=== PATIENT | female | born 1945 | race African-American/Black ===

== ENCOUNTER 2019-03-10 09:32 | Emergency (ER) | payer MEDICARE ==
--- NOTE | 2019-03-10 10:40 | CT ---
BRAIN CT WITHOUT IV CONTRAST: Date: 03/10/19 HISTORY: Seizure. FINDINGS: There is a fairly large area of encephalomalacia with some associated volume loss in the left occipit al lobe with some dilatation of the adjacent lateral ventricle. No focal mass or midline shift. No in tra or extra-axial hemorrhage. Sinuses and mastoids are clear of acute process. 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 No mass or bleed, o r other acute process. POS: C
[2019-03-10 10:47] LABS: #Eosinphils 0.1 thou/uL (0.0-0.7); #Monocytes 0.2 thou/uL (0.11-0.59); #Neutrophils 4.3 thou/uL (1.40-6.50); %Basophils 0.5 % (0.0-1.0); %Lymphocytes 18.3 % (21.0-51.0); %Monocytes 3.5 % (0.0-10.0); %Neutrophils 76.8 % (42.0-75.0); Hemoglobin 9.3 g/dL (12.0-16.0); Mean Corpuscular Hemoglobin 26.2 pg (27.0-31.0); Mean Corpuscular Volume 84.3 fL (78.0-98.0); Mean Platelet Volume 6.7 fL (7.4-10.4); Platelet Count 223 thou/uL (130-400); RBC Distribution Width 14.5 % (11.5-14.5); Red Blood Cell (RBC) Count 3.56 mill/uL (4.20-5.40); White Blood Cell (WBC) Count 5.6 thou/uL (4.8-10.8)
[2019-03-10 10:52] LABS: Bilirubin Negative (Negative); Blood, Urine Small (Negative); Clarity Clear (Clear); Glucose, Urine (Dipstick) Negative (Negative); Leukocyte Negative (Negative); Nitrite Negative (Negative); Protein, Urine (Dipstick) > or equal to 300 mg/dL (Neg-Trace); Urobilinogen 0.2 mg/dL (0.2-1.0); pH, Urine 5.5 (5.0-9.0)
[2019-03-10 11:01] LABS: ALT (SGPT) 13 U/L (8-55); AST (SGOT) 18 U/L (5-34); Albumin 3.8 g/dL (3.4-4.8); Alkaline Phosphatase 67 U/L (40-150); Anion Gap 15 mmol/L (10-20); BUN (Urea Nitrogen) 21 mg/dL (9.8-20.1); Bilirubin, Total 0.4 mg/dL (0.2-1.2); Calc. Creatinine Clearance 0 mL/min (70-130); Calcium 9.3 mg/dL (7.8-10.44); Carbon Dioxide 25 mmol/L (23-31); Chloride 105 mmol/L (98-107); Estimated GFR-MDRD 63; Globulin 3.5 g/dL (2.4-3.5); Glucose 172 mg/dL (83-110); Protein, Total 7.3 g/dL (6.0-8.3); Sodium 141 mmol/L (136-145)
[2019-03-10 11:01] LABS: Bacteria/HPF 3+ HPF (None Seen); RBC/HPF 0-3 HPF (0-3); Squamous Epithelial 0-3 HPF (0-3); WBC/HPF 0-3 HPF (0-3)
[2019-03-10 11:02] LABS: Amphetamine Not Detected (NotDetected); Barbiturates Screen Not Detected (NotDetected); Benzodiazepine Screen Not Detected (NotDetected); Cocaine Metabolite Screen Not Detected (NotDetected); Medtox Control Line Valid? VALID (VALID); Methadone Not Detected (NotDetected); Methamphetamine Not Detected (NotDetected); Opiate Screen Not Detected (NotDetected); Oxycodone Screen Not Detected (NotDetected); Phencyclidine (PCP) Not Detected (NotDetected); THC/Cannabinoid Screen Not Detected (NotDetected); Tricyclic Screen Not Detected (NotDetected)
--- NOTE | 2019-03-10 11:25 | RAD ---
XR Chest 1 View Portable HISTORY: Altered mental status COMPARISON: 07/06/2015 FINDINGS: The heart size is borderline. The aorta is tortuous. The lungs are well expanded without lo bar consolidation, pneumothoraces, thelma pulmonary edema or pleural effusions. IMPRESSION: No radiographic evidence of acute cardiopulmonary process.
[2019-03-10] MEDS ORDERED: cefTRIAXone\\ROCEPHIN 1 GM VIAL ONE (11:44)
[2019-03-10] MEDS ORDERED: levETIRAcetam 500 MG TAB ONE (12:02)
== END 2019-03-10 12:45 | disposition home or self-care (01) ==
LOC: MADERS 09:32
DX: R56.9 Unspecified convulsions (principal); R41.82 Altered mental status, unspecified; I11.0 Hypertensive heart disease with heart failure; I50.9 Heart failure, unspecified; D64.9 Anemia, unspecified; N39.0 Urinary tract infection, site not specified; E11.9 Type 2 diabetes mellitus without complications; E78.00 Pure hypercholesterolemia, unspecified; Z86.73 Personal history of transient ischemic attack (TIA), and cerebral infarction without residual deficits; F41.9 Anxiety disorder, unspecified; Z79.899 Other long term (current) drug therapy; Z79.82 Long term (current) use of aspirin; Z79.84 Long term (current) use of oral hypoglycemic drugs
CPT/HCPCS: 36415; 36416; 51701; 70450; 71045; 80053; 80306; 81003; 81015; 84484; 85025; 87040; 93005; 94760; 96374; A4353; J0696

== ENCOUNTER 2021-10-18 15:12 | Inpatient (IN) | payer MEDICARE ==
[2021-10-18] MEDS ORDERED: Ibuprofen 600 MG TAB ONE (15:52)
[2021-10-18 15:59] LABS: #Lymphocytes 0.6 thou/uL (1.20-3.40); #Monocytes 0.6 thou/uL (0.11-0.59); #Neutrophils 7.6 thou/uL (1.40-6.50); %Basophils 0.2 % (0.0-1.0); %Eosinophils 0.1 % (0.0-10.0); %Lymphocytes 6.4 % (21.0-51.0); %Monocytes 6.3 % (0.0-10.0); Hemoglobin 8.5 g/dL (12.0-16.0); Mean Corpuscular HGB CONC 31.4 g/dL (32.0-36.0); Mean Corpuscular Hemoglobin 27.3 pg (27.0-31.0); Mean Corpuscular Volume 87.1 fL (78.0-98.0); Mean Platelet Volume 6.5 fL (7.4-10.4); Platelet Count 254 thou/uL (130-400); RBC Distribution Width 13.6 % (11.5-14.5); Red Blood Cell (RBC) Count 3.09 mill/uL (4.20-5.40); White Blood Cell (WBC) Count 8.8 thou/uL (4.8-10.8)
[2021-10-18] MEDS ORDERED: Sodium Chloride 0.9% 1,000 ML ONE (16:10)
[2021-10-18] MEDS ORDERED: cefTRIAXone\\ROCEPHIN 2 GM VIAL ONE ×2 (16:10→16:11)
[2021-10-18] MEDS ORDERED: Sodium Chloride 0.9% 100 ML ONE (16:10)
[2021-10-18 16:13] LABS: ALT (SGPT) 14 U/L (8-55); AST (SGOT) 26 U/L (5-34); Albumin 3.2 g/dL (3.4-4.8); Alkaline Phosphatase 69 U/L (40-110); Anion Gap 13 mmol/L (10-20); BUN (Urea Nitrogen) 31 mg/dL (9.8-20.1); Bilirubin, Total 0.7 mg/dL (0.2-1.2); Calc. Creatinine Clearance 0 mL/min (70-130); Calcium 8.9 mg/dL (7.8-10.44); Carbon Dioxide 24 mmol/L (23-31); Chloride 101 mmol/L (98-107); Globulin 4.3 g/dL (2.4-3.5); Glucose 232 mg/dL (83-110); Potassium 4.1 mmol/L (3.5-5.1); Protein, Total 7.5 g/dL (5.8-8.1); Sodium 134 mmol/L (136-145)
[2021-10-18 16:18] LABS: Bilirubin Negative (Negative); Blood, Urine Small (Negative); Clarity Slightly Cloudy (Clear); Glucose, Urine (Dipstick) 100 mg/dL (Negative); Ketone, Urine Negative (Negative); Leukocyte Negative (Negative); Nitrite Negative (Negative); Protein, Urine (Dipstick) > or equal to 300 mg/dL (Neg-Trace)
[2021-10-18 16:25] LABS: Squamous Epithelial 0-3 HPF (0-3); WBC/HPF 0-3 HPF (0-3)
[2021-10-18 16:26] LABS: Bacteria/HPF 3+ HPF (None Seen)
[2021-10-18 16:50] LABS: SARS-CoV-2 NAA Rapid Test Not Detected (NotDetected)
[2021-10-18] MEDS ORDERED: Azithromycin 500 MG VIAL ONE (17:32)
[2021-10-18] MEDS ORDERED: Sodium Chloride 0.9% 250 ML 250 ML ONE (17:32)
[2021-10-18] MEDS ORDERED: Dextrose 50% Abboject 50 ML SYRINGE IVP PRN (18:15)
[2021-10-18] MEDS ORDERED: Ondansetron ODT 4 MG TAB PO PRN (18:15)
[2021-10-18] MEDS ORDERED: Dextrose 5% in Water 1,000 ML IV PRN (18:15)
[2021-10-18] MEDS ORDERED: Acetaminophen 325 MG TAB PO PRN (18:15)
[2021-10-18 18:22] VITALS: BMI 33.0
[2021-10-18] MEDS: Sodium Chloride 0.9% 1,000 ML IV SCH (19:30)
[2021-10-18] MEDS: glipiZIDE 5 MG TAB PO SCH (20:51)
[2021-10-18] MEDS: cloNIDine 0.1 MG TAB PO SCH (20:52)
[2021-10-19] MEDS: Sodium Chloride 0.9% 1,000 ML IV SCH (05:06)
[2021-10-19 05:24] LABS: #Lymphocytes 0.9 thou/uL (1.20-3.40); #Monocytes 0.7 thou/uL (0.11-0.59); #Neutrophils 7.3 thou/uL (1.40-6.50); %Basophils 0.3 % (0.0-1.0); %Eosinophils 0.1 % (0.0-10.0); %Lymphocytes 10.5 % (21.0-51.0); %Monocytes 7.4 % (0.0-10.0); %Neutrophils 81.7 % (42.0-75.0); Mean Corpuscular HGB CONC 31.5 g/dL (32.0-36.0); Mean Corpuscular Hemoglobin 27.5 pg (27.0-31.0); Mean Corpuscular Volume 87.3 fL (78.0-98.0); Mean Platelet Volume 5.6 fL (7.4-10.4); Platelet Count 262 thou/uL (130-400); RBC Distribution Width 13.7 % (11.5-14.5); Red Blood Cell (RBC) Count 2.92 mill/uL (4.20-5.40); White Blood Cell (WBC) Count 8.9 thou/uL (4.8-10.8)
[2021-10-19 05:42] LABS: Anion Gap 12 mmol/L (10-20); BUN (Urea Nitrogen) 28 mg/dL (9.8-20.1); Calc. Creatinine Clearance 53 mL/min (70-130); Calcium 9.1 mg/dL (7.8-10.44); Carbon Dioxide 25 mmol/L (23-31); Chloride 104 mmol/L (98-107); Glucose 274 mg/dL (83-110); Potassium 4.1 mmol/L (3.5-5.1); Sodium 137 mmol/L (136-145)
[2021-10-19] MEDS: Aspirin Chewable 81 MG TAB PO SCH (08:21)
[2021-10-19] MEDS: Furosemide 40 MG TAB PO SCH (08:21)
[2021-10-19] MEDS: metFORMIN 500 MG TAB PO SCH ×2 (08:21→16:50)
[2021-10-19] MEDS ORDERED: Enoxaparin Sodium 40 MG/0.4 ML SYRINGE SC SCH (12:00)
[2021-10-19 12:27] LABS: Hemoglobin A1c 8.5 % (4.0-6.0)
[2021-10-19] MEDS: cefTRIAXone\\ROCEPHIN 1 GM in Sodium Chloride 0.9% 100 ML IVPB SCH (15:25)
[2021-10-19] MEDS: Azithromycin 500 MG in Sodium Chloride 0.9% 250 ML 250 ML IVPB SCH (16:41)
[2021-10-19] MEDS: cloNIDine 0.1 MG TAB PO SCH (20:25)
[2021-10-19] MEDS: glipiZIDE 5 MG TAB PO SCH (20:25)
[2021-10-19] MEDS: Emollient 15 oz bottle 450 ML, Triamcinolone Acetonide 200 MG TOP SCH (20:26)
[2021-10-20 05:23] LABS: #Lymphocytes 1.4 thou/uL (1.20-3.40); #Monocytes 0.5 thou/uL (0.11-0.59); #Neutrophils 3.6 thou/uL (1.40-6.50); %Basophils 0.5 % (0.0-1.0); %Eosinophils 0.7 % (0.0-10.0); %Lymphocytes 24.6 % (21.0-51.0); %Monocytes 9.4 % (0.0-10.0); %Neutrophils 64.8 % (42.0-75.0); Mean Corpuscular HGB CONC 31.4 g/dL (32.0-36.0); Mean Platelet Volume 5.7 fL (7.4-10.4); Platelet Count 302 thou/uL (130-400); Red Blood Cell (RBC) Count 2.97 mill/uL (4.20-5.40); White Blood Cell (WBC) Count 5.6 thou/uL (4.8-10.8)
[2021-10-20 05:39] LABS: Anion Gap 10 mmol/L (10-20); BUN (Urea Nitrogen) 24 mg/dL (9.8-20.1); Calc. Creatinine Clearance 63 mL/min (70-130); Calcium 9.4 mg/dL (7.8-10.44); Carbon Dioxide 26 mmol/L (23-31); Chloride 105 mmol/L (98-107); Cholesterol 112 mg/dl (< 200 Desired); Glucose 195 mg/dL (83-110); HDL Cholesterol 14 mg/dL (>60 Neg Risk); LDL Cholesterol, Calculated 61 mg/dL; Potassium 4.1 mmol/L (3.5-5.1); Sodium 137 mmol/L (136-145); Triglycerides 184 mg/dL (Less than 150)
[2021-10-20] MEDS: metFORMIN 500 MG TAB PO SCH ×2 (08:40→17:45)
[2021-10-20] MEDS: Furosemide 40 MG TAB PO SCH (08:41)
[2021-10-20] MEDS: Aspirin Chewable 81 MG TAB PO SCH (08:41)
[2021-10-20] MEDS: Insulin Regular 300 UNITS/3 ML VIAL SC PRN (08:41)
[2021-10-20] MEDS: Enoxaparin Sodium 40 MG/0.4 ML SYRINGE SC SCH (08:41)
[2021-10-20] MEDS: Emollient 15 oz bottle 450 ML, Triamcinolone Acetonide 200 MG TOP SCH ×2 (11:24→20:36)
[2021-10-20] MEDS: cefTRIAXone\\ROCEPHIN 1 GM in Sodium Chloride 0.9% 100 ML IVPB SCH (16:06)
[2021-10-20] MEDS: Azithromycin 500 MG in Sodium Chloride 0.9% 250 ML 250 ML IVPB SCH (17:45)
[2021-10-20] MEDS: glipiZIDE 5 MG TAB PO SCH (20:32)
[2021-10-20] MEDS: cloNIDine 0.1 MG TAB PO SCH (20:37)
[2021-10-21] MEDS: metFORMIN 500 MG TAB PO SCH ×2 (08:43→17:03)
[2021-10-21] MEDS: Furosemide 40 MG TAB PO SCH (08:43)
[2021-10-21] MEDS: Enoxaparin Sodium 40 MG/0.4 ML SYRINGE SC SCH (08:43)
[2021-10-21] MEDS: Aspirin Chewable 81 MG TAB PO SCH (08:43)
[2021-10-21] MEDS: Emollient 15 oz bottle 450 ML, Triamcinolone Acetonide 200 MG TOP SCH ×2 (08:43→20:11)
[2021-10-21] MEDS: cefTRIAXone\\ROCEPHIN 1 GM in Sodium Chloride 0.9% 100 ML IVPB SCH (15:55)
[2021-10-21] MEDS: Azithromycin 500 MG in Sodium Chloride 0.9% 250 ML 250 ML IVPB SCH (17:03)
[2021-10-21] MEDS: cloNIDine 0.1 MG TAB PO SCH (20:10)
[2021-10-21] MEDS: glipiZIDE 5 MG TAB PO SCH (20:10)
[2021-10-22] MEDS ORDERED: cloNIDine 0.1 MG TAB PO SCH (04:45)
[2021-10-22 05:04] VITALS: BP 176/72
[2021-10-22 06:06] VITALS: TEMP 98.2
[2021-10-22] MEDS: Enoxaparin Sodium 40 MG/0.4 ML SYRINGE SC SCH (08:02)
[2021-10-22] MEDS: Furosemide 40 MG TAB PO SCH (08:02)
[2021-10-22] MEDS: Aspirin Chewable 81 MG TAB PO SCH (08:02)
[2021-10-22] MEDS: metFORMIN 500 MG TAB PO SCH (08:02)
[2021-10-22] MEDS: Emollient 15 oz bottle 450 ML, Triamcinolone Acetonide 200 MG TOP SCH (08:03)
[2021-10-22] MEDS: Insulin Regular 300 UNITS/3 ML VIAL SC PRN (08:06)
[2021-10-23] MEDS ORDERED: cloNIDine 0.1 MG TAB PO SCH (08:00)
== END 2021-10-22 13:10 | disposition home or self-care (01) | DRG 194 ==
LOC: MADERS 15:12 → MADMS 17:29
PROVIDERS: ADMIT Family Medicine; ATTEND Family Medicine
DX: J13 Pneumonia due to Streptococcus pneumoniae (principal); I43 Cardiomyopathy in diseases classified elsewhere; Z16.29 Resistance to other single specified antibiotic; Z20.822 Contact with and (suspected) exposure to COVID-19; E11.22 Type 2 diabetes mellitus with diabetic chronic kidney disease; I12.9 Hypertensive chronic kidney disease with stage 1 through stage 4 chronic kidney disease, or unspecified chronic kidney disease; E78.5 Hyperlipidemia, unspecified; D63.1 Anemia in chronic kidney disease; E11.65 Type 2 diabetes mellitus with hyperglycemia; I13.10 Hypertensive heart and chronic kidney disease without heart failure, with stage 1 through stage 4 chronic kidney disease, or unspecified chronic kidney disease; N18.9 Chronic kidney disease, unspecified; Z79.82 Long term (current) use of aspirin; Z79.899 Other long term (current) drug therapy
CPT/HCPCS: 0240U; 36415; 36416; 51701; 71045; 71046; 80048; 80053; 80061; 81003; 81015; 83036; 83605; 84443; 84484; 85025; 87040; 87077; 87149; 87186; 93005; 94760; 96365; 96375; J0456; J0696; J1650; J1815; J3301; J3490; J7050

== ENCOUNTER 2021-11-20 22:33 | Emergency (ER) | payer MEDICARE ==
[2021-11-21 00:35] LABS: Eosinophils 5 % (0-10); Hemoglobin 9.3 g/dL (12.0-16.0); Lymphocytes 49 % (21-51); MDiff Complete? YES; Mean Corpuscular HGB CONC 30.7 g/dL (32.0-36.0); Mean Corpuscular Hemoglobin 27.3 pg (27.0-31.0); Mean Platelet Volume 6.4 fL (7.4-10.4); Monocytes 4 % (0-10); Neutrophil 42 % (42-75); Platelet Count 241 thou/uL (130-400); Platelet Morphology Comment Appears Adequate; RBC Distribution Width 15.2 % (11.5-14.5); RBC Morphology Normal
[2021-11-21 00:40] LABS: ALT (SGPT) 15 U/L (8-55); AST (SGOT) 18 U/L (5-34); Alkaline Phosphatase 54 U/L (40-110); Anion Gap 17 mmol/L (10-20); BUN (Urea Nitrogen) 33 mg/dL (9.8-20.1); Bilirubin, Total 0.5 mg/dL (0.2-1.2); CK (CPK) 99 U/L (29-168); Calc. Creatinine Clearance 0 mL/min (70-130); Calcium 9.4 mg/dL (7.8-10.44); Carbon Dioxide 24 mmol/L (23-31); Chloride 101 mmol/L (98-107); Globulin 3.9 g/dL (2.4-3.5); Glucose 135 mg/dL (83-110); Lipase 96 U/L (8-78); Potassium 4.2 mmol/L (3.5-5.1); Protein, Total 7.9 g/dL (5.8-8.1); Sodium 138 mmol/L (136-145)
[2021-11-21] MEDS ORDERED: hydrOXYzine 25 MG TAB ONE (01:08)
== END 2021-11-21 01:15 | disposition home or self-care (01) ==
LOC: MADERS 22:33
DX: F41.9 Anxiety disorder, unspecified (principal); I11.0 Hypertensive heart disease with heart failure; I50.9 Heart failure, unspecified; E11.9 Type 2 diabetes mellitus without complications; E78.00 Pure hypercholesterolemia, unspecified; Z86.73 Personal history of transient ischemic attack (TIA), and cerebral infarction without residual deficits; Z79.82 Long term (current) use of aspirin; Z79.84 Long term (current) use of oral hypoglycemic drugs
CPT/HCPCS: 71045; 80053; 82550; 83605; 83690; 83880; 84484; 85025; 93005

== ENCOUNTER 2021-11-24 13:42 | Emergency (ER) | payer MEDICARE ==
[~2021-11-24 13:42] MED LIST: Iopamidol 370 76% 100 ML VIAL ONE
[2021-11-24] MEDS ORDERED: Lorazepam 2 MG/ML VIAL ONE (14:38)
[2021-11-24 15:08] LABS: #Lymphocytes 1.3 thou/uL (1.20-3.40); #Monocytes 0.2 thou/uL (0.11-0.59); %Basophils 0.7 % (0.0-1.0); %Eosinophils 0.7 % (0.0-10.0); %Lymphocytes 23.5 % (21.0-51.0); %Monocytes 3.8 % (0.0-10.0); %Neutrophils 71.3 % (42.0-75.0); Hemoglobin 9.8 g/dL (12.0-16.0); Mean Corpuscular Hemoglobin 27.4 pg (27.0-31.0); Mean Corpuscular Volume 88.4 fL (78.0-98.0); Mean Platelet Volume 6.3 fL (7.4-10.4); Platelet Count 292 thou/uL (130-400); RBC Distribution Width 14.7 % (11.5-14.5); Red Blood Cell (RBC) Count 3.59 mill/uL (4.20-5.40); White Blood Cell (WBC) Count 5.6 thou/uL (4.8-10.8)
[2021-11-24 15:17] LABS: ALT (SGPT) 15 U/L (8-55); AST (SGOT) 18 U/L (5-34); Alkaline Phosphatase 64 U/L (40-110); Anion Gap 17 mmol/L (10-20); BUN (Urea Nitrogen) 25 mg/dL (9.8-20.1); Bilirubin, Total 0.4 mg/dL (0.2-1.2); Calc. Creatinine Clearance 0 mL/min (70-130); Calcium 9.4 mg/dL (7.8-10.44); Carbon Dioxide 23 mmol/L (23-31); Chloride 101 mmol/L (98-107); Glucose 108 mg/dL (83-110); Lipase 159 U/L (8-78); Magnesium 1.4 mg/dL (1.6-2.6); Potassium 4.6 mmol/L (3.5-5.1); Sodium 136 mmol/L (136-145)
[2021-11-24] MEDS ORDERED: Magnesium 2 GM/50 ML BAG (IN WATER) ONE (15:31)
[2021-11-24 17:40] LABS: Lactic Acid 2.3 mmol/L (0.5-2.2)
== END 2021-11-24 18:35 | disposition home or self-care (01) ==
LOC: MADERS 13:42
DX: I71.2 Thoracic aortic aneurysm, without rupture (principal); F41.9 Anxiety disorder, unspecified; K85.90 Acute pancreatitis without necrosis or infection, unspecified; N13.30 Unspecified hydronephrosis; E83.42 Hypomagnesemia; R74.8 Abnormal levels of other serum enzymes; R79.1 Abnormal coagulation profile; I45.19 Other right bundle-branch block; R00.0 Tachycardia, unspecified; I11.0 Hypertensive heart disease with heart failure; I50.9 Heart failure, unspecified; E11.9 Type 2 diabetes mellitus without complications; E78.00 Pure hypercholesterolemia, unspecified; Z86.73 Personal history of transient ischemic attack (TIA), and cerebral infarction without residual deficits; Z79.82 Long term (current) use of aspirin; Z79.84 Long term (current) use of oral hypoglycemic drugs; Z79.899 Other long term (current) drug therapy
CPT/HCPCS: 36415; 71045; 71275; 74174; 80053; 83605; 83690; 83735; 84443; 84484; 85025; 85379; 93005; 94760; 96365; 96366; 96375; J2060; J3475; Q9967

== ENCOUNTER 2022-02-27 05:44 | Emergency (ER) | payer MEDICARE ==
[2022-02-27] MEDS ORDERED: Nitroglycerin 0.4 MG TAB 1 EACH ONE ×2 (05:55→07:30)
[2022-02-27] MEDS ORDERED: Furosemide 40 MG/4 ML VIAL ONE (06:21)
[2022-02-27 06:32] LABS: INR-International Normal Ratio 1.1; Prothrombin Time 14.3 sec (12.0-14.7)
[2022-02-27 06:33] LABS: PTT 25.8 sec (22.9-36.1)
[2022-02-27 06:35] LABS: D-Dimer Test 0.71 *mcg/mL (0.27-0.43)
[2022-02-27 06:39] LABS: Hemoglobin 9.3 g/dL (12.0-16.0); Mean Corpuscular HGB CONC 29.7 g/dL (32.0-36.0); Mean Corpuscular Hemoglobin 26.6 pg (27.0-31.0); Mean Corpuscular Volume 89.5 fL (78.0-98.0); Mean Platelet Volume 8.1 fL (7.4-10.4); Platelet Count 280 thou/uL (130-400); RBC Distribution Width 14.9 % (11.5-14.5); Red Blood Cell (RBC) Count 3.51 mill/uL (4.20-5.40)
[2022-02-27 06:42] LABS: ALT (SGPT) 85 U/L (8-55); AST (SGOT) 96 U/L (5-34); Albumin 3.9 g/dL (3.4-4.8); Alkaline Phosphatase 76 U/L (40-110); Anion Gap 15 mmol/L (10-20); BUN (Urea Nitrogen) 33 mg/dL (9.8-20.1); Bilirubin, Total 0.3 mg/dL (0.2-1.2); Calc. Creatinine Clearance 0 mL/min (70-130); Calcium 9.1 mg/dL (7.8-10.44); Carbon Dioxide 21 mmol/L (23-31); Chloride 107 mmol/L (98-107); Globulin 3.7 g/dL (2.4-3.5); Glucose 270 mg/dL (83-110); Potassium 5.1 mmol/L (3.5-5.1); Protein, Total 7.6 g/dL (5.8-8.1); Sodium 138 mmol/L (136-145)
[2022-02-27 06:51] LABS: Anisocytosis SLIGHT = 6-15 cells (100X) (0-5/hpf); Band 1 % (5-11); Eosinophils 1 % (0-10); Lymphocytes 50 % (21-51); MDiff Complete? YES; Manual Diff?? YES; Monocytes 6 % (0-10); Neutrophil 42 % (42-75); Platelet Morphology Comment Appears Adequate
[2022-02-27] MEDS ORDERED: Aspirin 325 MG TAB ONE (07:09)
[2022-02-27 07:14] LABS: SARS-CoV-2 NAA Rapid Test Not Detected (NotDetected)
[2022-02-27 07:28] LABS: Bilirubin Negative (Negative); Blood, Urine Trace (Negative); Clarity Clear (Clear); Glucose, Urine (Dipstick) 100 mg/dL (Negative); Ketone, Urine Negative (Negative); Leukocyte Negative (Negative); Nitrite Negative (Negative); Protein, Urine (Dipstick) 100 mg/dL (Neg-Trace); Urobilinogen 0.2 mg/dL (Less than 2)
[2022-02-27 07:29] LABS: Bacteria/HPF Rare-Few HPF (None Seen); RBC/HPF 0-3 HPF (0-3); Squamous Epithelial 0-3 HPF (0-3); WBC/HPF 0-3 HPF (0-3)
[2022-02-27 07:33] LABS: Base Excess-Venous -3.1 mmol/L (-2.0 to 3.0); Bicarbonate (HCO3v) 20.2 mmol/L (22.0-28.0); CO2 Tension (PvCO2) 29.2 mmHg (42.0-51.0); Calcium, Ionized 1.16 mmol/L (1.15-1.33); Chloride 107 mmol/L (98-107); Hemoglobin - Calc 10.3 g/dL (12.0-16.0); Potassium 5.1 mmol/L (3.5-5.1); Sodium 140 mmol/L (138-145); T. Carbon Dioxide 21.1 mmol/L (22.0-28.0); vO2 Saturation-calc 99.8 % (60.0-85.0)
[2022-02-27 07:37] LABS: Amphetamine Not Detected (NotDetected); Barbiturates Screen Not Detected (NotDetected); Benzodiazepine Screen Not Detected (NotDetected); Cocaine Metabolite Screen Not Detected (NotDetected); Medtox Control Line Valid? VALID (VALID); Methadone Not Detected (NotDetected); Methamphetamine Not Detected (NotDetected); Opiate Screen Not Detected (NotDetected); Oxycodone Screen Not Detected (NotDetected); Phencyclidine (PCP) Not Detected (NotDetected); THC/Cannabinoid Screen Not Detected (NotDetected); Tricyclic Screen Not Detected (NotDetected)
== END 2022-02-27 08:34 | disposition short-term general hospital (02) ==
LOC: MADERS 05:44
DX: I11.0 Hypertensive heart disease with heart failure (principal); I50.9 Heart failure, unspecified; R77.8 Other specified abnormalities of plasma proteins; I16.0 Hypertensive urgency; R74.01 Elevation of levels of liver transaminase levels; Z20.822 Contact with and (suspected) exposure to COVID-19; K21.9 Gastro-esophageal reflux disease without esophagitis; E78.5 Hyperlipidemia, unspecified; J45.909 Unspecified asthma, uncomplicated; E78.00 Pure hypercholesterolemia, unspecified; Z86.73 Personal history of transient ischemic attack (TIA), and cerebral infarction without residual deficits; Z79.84 Long term (current) use of oral hypoglycemic drugs; Z79.82 Long term (current) use of aspirin; Z79.899 Other long term (current) drug therapy
CPT/HCPCS: 71045; 80053; 80306; 81003; 81015; 82330; 82553; 82803; 83735; 83880; 84443; 84484; 85025; 85379; 85610; 85730; 93005; 94760; 96374; J1940; J7620; U0002

== ENCOUNTER 2022-08-29 07:22 | Emergency (ER) | payer MEDICARE ==
[~2022-08-29 07:22] MED LIST changes: -Iopamidol 370 76% 100 ML VIAL ONE; +Sodium Chloride 0.9% 50 ML BAG ONE
[2022-08-29 08:26] LABS: #Eosinphils 0.1 thou/uL (0.0-0.7); #Lymphocytes 1.1 thou/uL (1.20-3.40); #Monocytes 0.3 thou/uL (0.11-0.59); #Neutrophils 7.5 thou/uL (1.40-6.50); %Basophils 0.3 % (0.0-1.0); %Eosinophils 0.7 % (0.0-10.0); %Lymphocytes 11.9 % (21.0-51.0); %Monocytes 3.4 % (0.0-10.0); %Neutrophils 83.8 % (42.0-75.0); Hemoglobin 10.1 g/dL (12.0-16.0); Mean Corpuscular HGB CONC 31.1 g/dL (32.0-36.0); Mean Corpuscular Hemoglobin 28.3 pg (27.0-31.0); Mean Corpuscular Volume 91.3 fl (78.0-98.0); Mean Platelet Volume 7.5 fL (7.4-10.4); Platelet Count 245 thou/uL (130-400); RBC Distribution Width 14.1 % (11.5-14.5); Red Blood Cell (RBC) Count 3.56 mill/uL (4.20-5.40)
[2022-08-29 08:40] LABS: ALT (SGPT) 52 U/L (8-55); AST (SGOT) 59 U/L (5-34); Albumin 3.9 g/dL (3.4-4.8); Alkaline Phosphatase 77 U/L (40-110); Anion Gap 18 mmol/L (10-20); BUN (Urea Nitrogen) 38 mg/dL (9.8-20.1); Bilirubin, Total 0.4 mg/dL (0.2-1.2); Calc. Creatinine Clearance 0 mL/min (70-130); Calcium 9.5 mg/dL (7.8-10.44); Carbon Dioxide 24 mmol/L (23-31); Chloride 101 mmol/L (98-107); Estimated GFR 29; Glucose 397 mg/dL (83-110); Potassium 6.3 mmol/L (3.5-5.1); Protein, Total 7.9 g/dL (5.8-8.1); Sodium 137 mmol/L (136-145)
[2022-08-29] MEDS ORDERED: Nitroglycerin 2% Ointment 1 INCH/1 GM Packet ONE (08:41)
[2022-08-29] MEDS ORDERED: Calcium Gluc 4.6 MEQ/10 ML (100 MG/ML) ONE (09:17)
[2022-08-29] MEDS ORDERED: Insulin Regular 300 UNITS/3 ML VIAL ONE (09:17)
[2022-08-29] MEDS ORDERED: Dextrose 50% Abboject 50 ML SYRINGE ONE (09:17)
[2022-08-29 09:32] LABS: Magnesium 1.9 mg/dL (1.6-2.6)
[2022-08-29 09:51] LABS: CKMB 2.6 ng/mL (0-6.6)
[2022-08-29] MEDS ORDERED: Furosemide 20 MG/2 ML VIAL ONE (10:21)
[2022-08-29] MEDS ORDERED: Aspirin Chewable 81 MG TAB ONE (10:48)
[2022-08-29 12:39] LABS: ALT (SGPT) 50 U/L (8-55); AST (SGOT) 53 U/L (5-34); Alkaline Phosphatase 78 U/L (40-110); Anion Gap 18 mmol/L (10-20); BUN (Urea Nitrogen) 35 mg/dL (9.8-20.1); Bilirubin, Total 0.3 mg/dL (0.2-1.2); Calc. Creatinine Clearance 0 mL/min (70-130); Calcium 9.9 mg/dL (7.8-10.44); Carbon Dioxide 24 mmol/L (23-31); Chloride 101 mmol/L (98-107); Estimated GFR 32; Globulin 4.3 g/dL (2.4-3.5); Glucose 326 mg/dL (83-110); Potassium 5.2 mmol/L (3.5-5.1); Protein, Total 8.3 g/dL (5.8-8.1); Sodium 138 mmol/L (136-145)
[2022-08-29 12:54] LABS: Troponin I 1.669 ng/mL (< 0.028)
[2022-08-29] MEDS ORDERED: Heparin 25,000 units/D5W 500 ML ONE (13:11)
== END 2022-08-29 13:34 | disposition short-term general hospital (02) ==
LOC: MADERS 07:22
DX: I21.4 Non-ST elevation (NSTEMI) myocardial infarction (principal); I11.0 Hypertensive heart disease with heart failure; I50.9 Heart failure, unspecified; R77.8 Other specified abnormalities of plasma proteins; E87.5 Hyperkalemia; K21.9 Gastro-esophageal reflux disease without esophagitis; E11.9 Type 2 diabetes mellitus without complications; E78.00 Pure hypercholesterolemia, unspecified
CPT/HCPCS: 36415; 71045; 80053; 82553; 83735; 83880; 84484; 85025; 93005; 96374; 96375; J0610; J1644; J1815; J1940; J7620; J7999

== ENCOUNTER 2023-01-04 01:12 | Emergency (ER) | payer MEDICARE ==
[2023-01-04] MEDS ORDERED: Lorazepam 1 MG TAB ONE (01:47)
== END 2023-01-04 01:56 | disposition home or self-care (01) ==
LOC: MADERS 01:12
DX: F41.9 Anxiety disorder, unspecified (principal); K21.9 Gastro-esophageal reflux disease without esophagitis; E78.00 Pure hypercholesterolemia, unspecified; E11.9 Type 2 diabetes mellitus without complications; I11.0 Hypertensive heart disease with heart failure; I50.9 Heart failure, unspecified; Z86.73 Personal history of transient ischemic attack (TIA), and cerebral infarction without residual deficits; Z79.84 Long term (current) use of oral hypoglycemic drugs; Z79.899 Other long term (current) drug therapy
CPT/HCPCS: 36416; 99283

== ENCOUNTER 2023-02-03 15:07 | Emergency (ER) | payer OTHER ==
[2023-02-03] MEDS ORDERED: Cephalexin 500 MG CAP ONE (16:09)
== END 2023-02-03 16:37 | disposition home or self-care (01) ==
LOC: MADERS 15:07
DX: L97.829 Non-pressure chronic ulcer of other part of left lower leg with unspecified severity (principal); L97.819 Non-pressure chronic ulcer of other part of right lower leg with unspecified severity; K21.9 Gastro-esophageal reflux disease without esophagitis; E11.9 Type 2 diabetes mellitus without complications; I11.0 Hypertensive heart disease with heart failure; I50.9 Heart failure, unspecified; E78.00 Pure hypercholesterolemia, unspecified; Z79.899 Other long term (current) drug therapy; Z79.82 Long term (current) use of aspirin
CPT/HCPCS: 99283

== ENCOUNTER 2023-02-12 19:10 | Inpatient (IN) | payer OTHER ==
[2023-02-12] MEDS ORDERED: Acetaminophen 325 MG TAB PO PRN (21:55)
[2023-02-12] MEDS ORDERED: HumaLOG 300 UNITS/3 ML VIAL SC PRN (22:02)
[2023-02-12] MEDS ORDERED: Dextrose 50% Abboject 50 ML SYRINGE SLOW IVP PRN (22:02)
[2023-02-13] MEDS ORDERED: Ferrous Sulfate 325 MG TAB PO SCH ×2 (08:00→09:15)
[2023-02-13] MEDS: metFORMIN 500 MG TAB PO SCH ×2 (08:59→17:15)
[2023-02-13] MEDS: levETIRAcetam 500 MG TAB PO SCH ×2 (08:59→20:28)
[2023-02-13] MEDS: Carvedilol 12.5 MG TAB PO SCH ×2 (08:59→17:15)
[2023-02-13] MEDS: Clopidogrel Bisulfate 75 MG TAB PO SCH (09:01)
[2023-02-13] MEDS: Amlodipine 5 MG TAB PO SCH (09:01)
[2023-02-13] MEDS: Aspirin Chewable 81 MG TAB PO SCH (09:01)
[2023-02-13] MEDS: Furosemide 40 MG TAB PO SCH (09:02)
[2023-02-13] MEDS: HumaLOG 300 UNITS/3 ML VIAL SC PRN ×2 (12:26→17:25)
[2023-02-13] MEDS: glipiZIDE 5 MG TAB PO SCH (17:15)
[2023-02-13] MEDS: cloNIDine 0.1 MG TAB PO SCH (20:27)
[2023-02-13] MEDS: Atorvastatin Calcium 40 MG TAB PO SCH (20:27)
[2023-02-14] MEDS: Aspirin Chewable 81 MG TAB PO SCH (08:35)
[2023-02-14] MEDS: metFORMIN 500 MG TAB PO SCH ×2 (08:36→16:52)
[2023-02-14] MEDS: Furosemide 40 MG TAB PO SCH (08:36)
[2023-02-14] MEDS: Clopidogrel Bisulfate 75 MG TAB PO SCH (08:36)
[2023-02-14] MEDS: Amlodipine 5 MG TAB PO SCH (08:36)
[2023-02-14] MEDS: Ferrous Sulfate 325 MG TAB PO SCH (08:36)
[2023-02-14] MEDS: Carvedilol 12.5 MG TAB PO SCH ×2 (08:37→16:52)
[2023-02-14] MEDS: levETIRAcetam 500 MG TAB PO SCH ×2 (08:37→20:00)
[2023-02-14] MEDS: HumaLOG 300 UNITS/3 ML VIAL SC PRN (11:58)
[2023-02-14] MEDS: glipiZIDE 5 MG TAB PO SCH (16:52)
[2023-02-14] MEDS: cloNIDine 0.1 MG TAB PO SCH (20:00)
[2023-02-14] MEDS: Atorvastatin Calcium 40 MG TAB PO SCH (20:00)
[2023-02-15] MEDS: metFORMIN 500 MG TAB PO SCH ×2 (08:10→17:00)
[2023-02-15] MEDS: HumaLOG 300 UNITS/3 ML VIAL SC PRN (08:10)
[2023-02-15] MEDS: Clopidogrel Bisulfate 75 MG TAB PO SCH (08:11)
[2023-02-15] MEDS: levETIRAcetam 500 MG TAB PO SCH ×2 (08:11→20:26)
[2023-02-15] MEDS: Amlodipine 5 MG TAB PO SCH (08:12)
[2023-02-15] MEDS: Aspirin Chewable 81 MG TAB PO SCH (08:13)
[2023-02-15] MEDS: Furosemide 40 MG TAB PO SCH (08:13)
[2023-02-15] MEDS: Ferrous Sulfate 325 MG TAB PO SCH (08:13)
[2023-02-15] MEDS: Carvedilol 12.5 MG TAB PO SCH ×2 (08:13→17:00)
[2023-02-15] MEDS: glipiZIDE 5 MG TAB PO SCH (17:00)
[2023-02-15] MEDS: Atorvastatin Calcium 10 MG TAB PO SCH (20:26)
[2023-02-15] MEDS: cloNIDine 0.1 MG TAB PO SCH (20:27)
[2023-02-16] MEDS: Aspirin Chewable 81 MG TAB PO SCH (08:25)
[2023-02-16] MEDS: Ferrous Sulfate 325 MG TAB PO SCH (08:25)
[2023-02-16] MEDS: Amlodipine 5 MG TAB PO SCH (08:26)
[2023-02-16] MEDS: Clopidogrel Bisulfate 75 MG TAB PO SCH (08:26)
[2023-02-16] MEDS: Carvedilol 12.5 MG TAB PO SCH ×2 (08:27→17:07)
[2023-02-16] MEDS: metFORMIN 500 MG TAB PO SCH ×2 (08:27→17:07)
[2023-02-16] MEDS: Furosemide 40 MG TAB PO SCH (08:27)
[2023-02-16] MEDS: levETIRAcetam 500 MG TAB PO SCH ×2 (08:27→21:06)
[2023-02-16] MEDS: HumaLOG 300 UNITS/3 ML VIAL SC PRN (12:07)
[2023-02-16] MEDS: glipiZIDE 5 MG TAB PO SCH (17:07)
[2023-02-16] MEDS: cloNIDine 0.1 MG TAB PO SCH (21:06)
[2023-02-16] MEDS: Atorvastatin Calcium 10 MG TAB PO SCH (21:06)
[2023-02-17] MEDS: metFORMIN 500 MG TAB PO SCH ×2 (08:44→17:11)
[2023-02-17] MEDS: levETIRAcetam 500 MG TAB PO SCH ×2 (08:44→20:12)
[2023-02-17] MEDS: Aspirin Chewable 81 MG TAB PO SCH (08:44)
[2023-02-17] MEDS: Amlodipine 5 MG TAB PO SCH (08:44)
[2023-02-17] MEDS: Clopidogrel Bisulfate 75 MG TAB PO SCH (08:44)
[2023-02-17] MEDS: Ferrous Sulfate 325 MG TAB PO SCH (08:45)
[2023-02-17] MEDS: Furosemide 40 MG TAB PO SCH (08:45)
[2023-02-17] MEDS: Carvedilol 12.5 MG TAB PO SCH ×2 (08:45→17:11)
[2023-02-17] MEDS: HumaLOG 300 UNITS/3 ML VIAL SC PRN ×2 (08:57→12:01)
[2023-02-17] MEDS: glipiZIDE 5 MG TAB PO SCH (17:11)
[2023-02-17 18:04] LABS: RBC/HPF 0-3 HPF (0-3); Squamous Epithelial 0-3 HPF (0-3)
[2023-02-17 18:43] LABS: Bilirubin Negative (Negative); Blood, Urine Negative (Negative); Glucose, Urine (Dipstick) Negative (Negative); Ketone, Urine Negative (Negative); Leukocyte Small (Negative); Nitrite Negative (Negative); Protein, Urine (Dipstick) 100 mg/dL (Neg-Trace); Specific Gravity, Urine 1.015 (1.005-1.030); Urobilinogen 0.2 mg/dL (Less than 2)
[2023-02-17 18:44] LABS: Clarity Hazy (Clear)
[2023-02-17 19:15] LABS: Bacteria/HPF 3+ HPF (None Seen)
[2023-02-17] MEDS: cloNIDine 0.1 MG TAB PO SCH (20:12)
[2023-02-17] MEDS: Atorvastatin Calcium 10 MG TAB PO SCH (20:12)
[2023-02-18] MEDS: Clopidogrel Bisulfate 75 MG TAB PO SCH (08:19)
[2023-02-18] MEDS: Ferrous Sulfate 325 MG TAB PO SCH (08:19)
[2023-02-18] MEDS: metFORMIN 500 MG TAB PO SCH ×2 (08:19→16:39)
[2023-02-18] MEDS: Carvedilol 12.5 MG TAB PO SCH ×2 (08:19→16:39)
[2023-02-18] MEDS: Amlodipine 5 MG TAB PO SCH (08:19)
[2023-02-18] MEDS: levETIRAcetam 500 MG TAB PO SCH ×2 (08:19→20:26)
[2023-02-18] MEDS: Aspirin Chewable 81 MG TAB PO SCH (08:20)
[2023-02-18] MEDS: Furosemide 40 MG TAB PO SCH (08:20)
[2023-02-18] MEDS: HumaLOG 300 UNITS/3 ML VIAL SC PRN (12:13)
[2023-02-18] MEDS: glipiZIDE 5 MG TAB PO SCH (16:39)
[2023-02-18] MEDS: cloNIDine 0.1 MG TAB PO SCH (20:26)
[2023-02-18] MEDS: Ciprofloxacin 500 MG TAB PO SCH (20:26)
[2023-02-18] MEDS: Atorvastatin Calcium 10 MG TAB PO SCH (20:26)
[2023-02-19] MEDS: Ciprofloxacin 500 MG TAB PO SCH ×2 (05:45→20:55)
[2023-02-19] MEDS: Aspirin Chewable 81 MG TAB PO SCH (08:10)
[2023-02-19] MEDS: levETIRAcetam 500 MG TAB PO SCH ×2 (08:11→20:55)
[2023-02-19] MEDS: Amlodipine 5 MG TAB PO SCH (08:11)
[2023-02-19] MEDS: Ferrous Sulfate 325 MG TAB PO SCH (08:11)
[2023-02-19] MEDS: Furosemide 40 MG TAB PO SCH (08:11)
[2023-02-19] MEDS: metFORMIN 500 MG TAB PO SCH ×2 (08:11→17:20)
[2023-02-19] MEDS: Clopidogrel Bisulfate 75 MG TAB PO SCH (08:11)
[2023-02-19] MEDS: Carvedilol 12.5 MG TAB PO SCH ×2 (08:11→17:21)
[2023-02-19] MEDS: HumaLOG 300 UNITS/3 ML VIAL SC PRN (12:20)
[2023-02-19] MEDS ORDERED: Emollient 15 oz bottle 450 ML, Triamcinolone Acetonide 200 MG TOP PRN (16:50)
[2023-02-19] MEDS: glipiZIDE 5 MG TAB PO SCH (17:20)
[2023-02-19] MEDS: Atorvastatin Calcium 10 MG TAB PO SCH (20:54)
[2023-02-19] MEDS: cloNIDine 0.1 MG TAB PO SCH (20:55)
[2023-02-19] MEDS: Emollient 15 oz bottle 450 ML, Triamcinolone Acetonide 200 MG TOP SCH (21:02)
[2023-02-20] MEDS: Ciprofloxacin 500 MG TAB PO SCH ×2 (05:30→20:13)
[2023-02-20] MEDS: metFORMIN 500 MG TAB PO SCH ×2 (09:32→17:21)
[2023-02-20] MEDS: Ferrous Sulfate 325 MG TAB PO SCH (09:32)
[2023-02-20] MEDS: Aspirin Chewable 81 MG TAB PO SCH (09:33)
[2023-02-20] MEDS: Furosemide 40 MG TAB PO SCH (09:33)
[2023-02-20] MEDS: levETIRAcetam 500 MG TAB PO SCH ×2 (09:33→20:13)
[2023-02-20] MEDS: Amlodipine 5 MG TAB PO SCH (09:33)
[2023-02-20] MEDS: Carvedilol 12.5 MG TAB PO SCH ×2 (09:34→17:21)
[2023-02-20] MEDS: Clopidogrel Bisulfate 75 MG TAB PO SCH (09:34)
[2023-02-20] MEDS: Emollient 15 oz bottle 450 ML, Triamcinolone Acetonide 200 MG TOP SCH ×3 (09:47→20:31)
[2023-02-20] MEDS: glipiZIDE 5 MG TAB PO SCH (17:21)
[2023-02-20] MEDS: Atorvastatin Calcium 10 MG TAB PO SCH (20:13)
[2023-02-20] MEDS: cloNIDine 0.1 MG TAB PO SCH (20:13)
[2023-02-21 05:08] LABS: Platelet Count 204 10x3/uL (130-400)
[2023-02-21] MEDS: Ciprofloxacin 500 MG TAB PO SCH ×2 (05:29→20:11)
[2023-02-21] MEDS: metFORMIN 500 MG TAB PO SCH ×2 (09:01→17:19)
[2023-02-21] MEDS: Aspirin Chewable 81 MG TAB PO SCH (09:01)
[2023-02-21] MEDS: Clopidogrel Bisulfate 75 MG TAB PO SCH (09:02)
[2023-02-21] MEDS: Amlodipine 5 MG TAB PO SCH (09:02)
[2023-02-21] MEDS: Ferrous Sulfate 325 MG TAB PO SCH (09:02)
[2023-02-21] MEDS: Furosemide 40 MG TAB PO SCH (09:02)
[2023-02-21] MEDS: Emollient 15 oz bottle 450 ML, Triamcinolone Acetonide 200 MG TOP SCH ×2 (09:03→20:14)
[2023-02-21] MEDS: levETIRAcetam 500 MG TAB PO SCH ×2 (09:03→20:11)
[2023-02-21] MEDS: Carvedilol 12.5 MG TAB PO SCH ×2 (09:03→17:19)
[2023-02-21] MEDS: glipiZIDE 5 MG TAB PO SCH (17:19)
[2023-02-21] MEDS: cloNIDine 0.1 MG TAB PO SCH (20:12)
[2023-02-21] MEDS: Atorvastatin Calcium 10 MG TAB PO SCH (20:12)
[2023-02-22] MEDS: Ciprofloxacin 500 MG TAB PO SCH (06:16)
[2023-02-22] MEDS: metFORMIN 500 MG TAB PO SCH ×2 (08:48→16:34)
[2023-02-22] MEDS: Carvedilol 12.5 MG TAB PO SCH ×2 (08:48→16:34)
[2023-02-22] MEDS: Ferrous Sulfate 325 MG TAB PO SCH (08:48)
[2023-02-22] MEDS: Amlodipine 5 MG TAB PO SCH (09:24)
[2023-02-22] MEDS: levETIRAcetam 500 MG TAB PO SCH ×2 (09:24→21:02)
[2023-02-22] MEDS: Clopidogrel Bisulfate 75 MG TAB PO SCH (09:24)
[2023-02-22] MEDS: Aspirin Chewable 81 MG TAB PO SCH (09:24)
[2023-02-22] MEDS: Furosemide 40 MG TAB PO SCH (09:24)
[2023-02-22] MEDS: Emollient 15 oz bottle 450 ML, Triamcinolone Acetonide 200 MG TOP SCH ×2 (09:25→21:02)
[2023-02-22] MEDS ORDERED: Polyethylene Glycol 3350 17 GM Packet PO PRN (13:27)
[2023-02-22] MEDS ORDERED: Polyethylene Glycol 3350 17 GM Packet PO SCH (14:00)
[2023-02-22] MEDS: glipiZIDE 5 MG TAB PO SCH (16:34)
[2023-02-22] MEDS: cloNIDine 0.1 MG TAB PO SCH (21:02)
[2023-02-22] MEDS: Senokot S 8.6-50 MG TAB PO SCH (21:02)
[2023-02-22] MEDS: Atorvastatin Calcium 10 MG TAB PO SCH (21:02)
[2023-02-23] MEDS: Amlodipine 5 MG TAB PO SCH (08:48)
[2023-02-23] MEDS: Aspirin Chewable 81 MG TAB PO SCH (08:48)
[2023-02-23] MEDS: metFORMIN 500 MG TAB PO SCH ×2 (08:48→16:48)
[2023-02-23] MEDS: Senokot S 8.6-50 MG TAB PO SCH ×2 (08:49→20:56)
[2023-02-23] MEDS: Carvedilol 12.5 MG TAB PO SCH ×2 (08:51→16:48)
[2023-02-23] MEDS: Ferrous Sulfate 325 MG TAB PO SCH (08:51)
[2023-02-23] MEDS: Clopidogrel Bisulfate 75 MG TAB PO SCH (08:52)
[2023-02-23] MEDS: Emollient 15 oz bottle 450 ML, Triamcinolone Acetonide 200 MG TOP SCH ×2 (08:53→21:00)
[2023-02-23] MEDS: levETIRAcetam 500 MG TAB PO SCH ×2 (08:53→20:56)
[2023-02-23] MEDS: Furosemide 40 MG TAB PO SCH (08:53)
[2023-02-23] MEDS: glipiZIDE 5 MG TAB PO SCH (16:48)
[2023-02-23] MEDS: cloNIDine 0.1 MG TAB PO SCH (20:56)
[2023-02-23] MEDS: Atorvastatin Calcium 10 MG TAB PO SCH (20:56)
[2023-02-24] MEDS: Amlodipine 5 MG TAB PO SCH (09:06)
[2023-02-24] MEDS: Aspirin Chewable 81 MG TAB PO SCH (09:06)
[2023-02-24] MEDS: Clopidogrel Bisulfate 75 MG TAB PO SCH (09:06)
[2023-02-24] MEDS: Carvedilol 12.5 MG TAB PO SCH ×2 (09:06→17:01)
[2023-02-24] MEDS: Furosemide 40 MG TAB PO SCH (09:06)
[2023-02-24] MEDS: Emollient 15 oz bottle 450 ML, Triamcinolone Acetonide 200 MG TOP SCH ×2 (09:07→22:02)
[2023-02-24] MEDS: metFORMIN 500 MG TAB PO SCH ×2 (09:07→17:02)
[2023-02-24] MEDS: Ferrous Sulfate 325 MG TAB PO SCH (09:14)
[2023-02-24] MEDS: Senokot S 8.6-50 MG TAB PO SCH ×2 (09:15→22:01)
[2023-02-24] MEDS: levETIRAcetam 500 MG TAB PO SCH ×2 (09:15→22:01)
[2023-02-24] MEDS: cloNIDine 0.1 MG TAB PO SCH (22:00)
[2023-02-24] MEDS: Atorvastatin Calcium 10 MG TAB PO SCH (22:01)
[2023-02-25] MEDS: Amlodipine 5 MG TAB PO SCH (08:38)
[2023-02-25] MEDS: Senokot S 8.6-50 MG TAB PO SCH ×2 (08:38→20:47)
[2023-02-25] MEDS: Clopidogrel Bisulfate 75 MG TAB PO SCH (08:38)
[2023-02-25] MEDS: Furosemide 40 MG TAB PO SCH (08:38)
[2023-02-25] MEDS: metFORMIN 500 MG TAB PO SCH ×2 (08:38→17:08)
[2023-02-25] MEDS: Carvedilol 12.5 MG TAB PO SCH ×2 (08:38→17:08)
[2023-02-25] MEDS: levETIRAcetam 500 MG TAB PO SCH ×2 (08:38→20:47)
[2023-02-25] MEDS: Ferrous Sulfate 325 MG TAB PO SCH (08:38)
[2023-02-25] MEDS: Aspirin Chewable 81 MG TAB PO SCH (08:38)
[2023-02-25] MEDS: HumaLOG 300 UNITS/3 ML VIAL SC PRN (08:39)
[2023-02-25] MEDS: Emollient 15 oz bottle 450 ML, Triamcinolone Acetonide 200 MG TOP SCH ×2 (08:40→20:48)
[2023-02-25] MEDS: Atorvastatin Calcium 10 MG TAB PO SCH (20:47)
[2023-02-25] MEDS: cloNIDine 0.1 MG TAB PO SCH (20:47)
[2023-02-26] MEDS: Furosemide 40 MG TAB PO SCH (08:32)
[2023-02-26] MEDS: Aspirin Chewable 81 MG TAB PO SCH (08:32)
[2023-02-26] MEDS: Amlodipine 5 MG TAB PO SCH (08:32)
[2023-02-26] MEDS: levETIRAcetam 500 MG TAB PO SCH ×2 (08:32→19:59)
[2023-02-26] MEDS: metFORMIN 500 MG TAB PO SCH ×2 (08:33→17:04)
[2023-02-26] MEDS: Senokot S 8.6-50 MG TAB PO SCH ×2 (08:33→19:59)
[2023-02-26] MEDS: Ferrous Sulfate 325 MG TAB PO SCH (08:33)
[2023-02-26] MEDS: Carvedilol 12.5 MG TAB PO SCH ×2 (08:33→17:05)
[2023-02-26] MEDS: Clopidogrel Bisulfate 75 MG TAB PO SCH (08:33)
[2023-02-26] MEDS: Emollient 15 oz bottle 450 ML, Triamcinolone Acetonide 200 MG TOP SCH ×2 (08:34→19:59)
[2023-02-26] MEDS: Atorvastatin Calcium 10 MG TAB PO SCH (19:58)
[2023-02-26] MEDS: cloNIDine 0.1 MG TAB PO SCH (19:58)
[2023-02-27] MEDS: Furosemide 40 MG TAB PO SCH (07:55)
[2023-02-27] MEDS: Amlodipine 5 MG TAB PO SCH (07:55)
[2023-02-27] MEDS: Ferrous Sulfate 325 MG TAB PO SCH (07:55)
[2023-02-27] MEDS: Aspirin Chewable 81 MG TAB PO SCH (07:55)
[2023-02-27] MEDS: levETIRAcetam 500 MG TAB PO SCH ×2 (07:55→20:04)
[2023-02-27] MEDS: Clopidogrel Bisulfate 75 MG TAB PO SCH (07:55)
[2023-02-27] MEDS: metFORMIN 500 MG TAB PO SCH ×2 (07:55→17:05)
[2023-02-27] MEDS: Carvedilol 12.5 MG TAB PO SCH ×2 (07:55→17:05)
[2023-02-27] MEDS: Senokot S 8.6-50 MG TAB PO SCH ×2 (07:55→20:04)
[2023-02-27] MEDS: Emollient 15 oz bottle 450 ML, Triamcinolone Acetonide 200 MG TOP SCH ×2 (07:56→20:04)
[2023-02-27] MEDS: Atorvastatin Calcium 10 MG TAB PO SCH (20:04)
[2023-02-27] MEDS: cloNIDine 0.1 MG TAB PO SCH (20:04)
[2023-02-28] MEDS: metFORMIN 500 MG TAB PO SCH ×2 (07:57→16:56)
[2023-02-28] MEDS: Clopidogrel Bisulfate 75 MG TAB PO SCH (07:57)
[2023-02-28] MEDS: Ferrous Sulfate 325 MG TAB PO SCH (07:57)
[2023-02-28] MEDS: Aspirin Chewable 81 MG TAB PO SCH (07:57)
[2023-02-28] MEDS: Senokot S 8.6-50 MG TAB PO SCH ×2 (07:57→20:49)
[2023-02-28] MEDS: Carvedilol 12.5 MG TAB PO SCH ×2 (07:57→16:56)
[2023-02-28] MEDS: levETIRAcetam 500 MG TAB PO SCH ×2 (07:57→20:48)
[2023-02-28] MEDS: Furosemide 40 MG TAB PO SCH (07:57)
[2023-02-28] MEDS: Amlodipine 5 MG TAB PO SCH (07:57)
[2023-02-28] MEDS: Emollient 15 oz bottle 450 ML, Triamcinolone Acetonide 200 MG TOP SCH ×2 (07:58→20:49)
[2023-02-28] MEDS: Atorvastatin Calcium 10 MG TAB PO SCH (20:47)
[2023-02-28] MEDS: cloNIDine 0.1 MG TAB PO SCH (20:48)
[2023-03-01] MEDS: Ferrous Sulfate 325 MG TAB PO SCH (08:08)
[2023-03-01] MEDS: Amlodipine 5 MG TAB PO SCH (08:09)
[2023-03-01] MEDS: Furosemide 40 MG TAB PO SCH (08:09)
[2023-03-01] MEDS: levETIRAcetam 500 MG TAB PO SCH ×2 (08:09→20:08)
[2023-03-01] MEDS: Senokot S 8.6-50 MG TAB PO SCH ×2 (08:09→20:08)
[2023-03-01] MEDS: Aspirin Chewable 81 MG TAB PO SCH (08:09)
[2023-03-01] MEDS: Emollient 15 oz bottle 450 ML, Triamcinolone Acetonide 200 MG TOP SCH ×3 (08:10→20:08)
[2023-03-01] MEDS: Carvedilol 12.5 MG TAB PO SCH ×2 (08:10→17:06)
[2023-03-01] MEDS: Clopidogrel Bisulfate 75 MG TAB PO SCH (08:10)
[2023-03-01] MEDS: metFORMIN 500 MG TAB PO SCH ×2 (08:12→17:06)
[2023-03-01] MEDS: cloNIDine 0.1 MG TAB PO SCH (20:08)
[2023-03-01] MEDS: Atorvastatin Calcium 10 MG TAB PO SCH (20:08)
[2023-03-02 05:08] LABS: Hemoglobin 9.5 g/dL (12.0-16.0); Platelet Count 161 10x3/uL (130-400)
[2023-03-02] MEDS: Emollient 15 oz bottle 450 ML, Triamcinolone Acetonide 200 MG TOP SCH ×2 (08:33→19:47)
[2023-03-02] MEDS: Ferrous Sulfate 325 MG TAB PO SCH (08:33)
[2023-03-02] MEDS: Senokot S 8.6-50 MG TAB PO SCH ×2 (08:33→19:46)
[2023-03-02] MEDS: Aspirin Chewable 81 MG TAB PO SCH (08:33)
[2023-03-02] MEDS: Carvedilol 12.5 MG TAB PO SCH ×2 (08:34→17:10)
[2023-03-02] MEDS: Amlodipine 5 MG TAB PO SCH (08:34)
[2023-03-02] MEDS: Clopidogrel Bisulfate 75 MG TAB PO SCH (08:34)
[2023-03-02] MEDS: Furosemide 40 MG TAB PO SCH (08:34)
[2023-03-02] MEDS: metFORMIN 500 MG TAB PO SCH ×2 (08:34→17:10)
[2023-03-02] MEDS: levETIRAcetam 500 MG TAB PO SCH ×2 (08:34→19:46)
[2023-03-02] MEDS: cloNIDine 0.1 MG TAB PO SCH (19:46)
[2023-03-02] MEDS: Atorvastatin Calcium 10 MG TAB PO SCH (19:47)
[2023-03-03] MEDS: Ferrous Sulfate 325 MG TAB PO SCH (08:04)
[2023-03-03] MEDS: Furosemide 40 MG TAB PO SCH (08:04)
[2023-03-03] MEDS: Carvedilol 12.5 MG TAB PO SCH ×2 (08:04→16:47)
[2023-03-03] MEDS: metFORMIN 500 MG TAB PO SCH ×2 (08:04→16:47)
[2023-03-03] MEDS: Clopidogrel Bisulfate 75 MG TAB PO SCH (08:04)
[2023-03-03] MEDS: levETIRAcetam 500 MG TAB PO SCH ×2 (08:04→19:58)
[2023-03-03] MEDS: Senokot S 8.6-50 MG TAB PO SCH ×2 (08:04→19:58)
[2023-03-03] MEDS: Amlodipine 5 MG TAB PO SCH (08:04)
[2023-03-03] MEDS: Aspirin Chewable 81 MG TAB PO SCH (08:04)
[2023-03-03] MEDS: Emollient 15 oz bottle 450 ML, Triamcinolone Acetonide 200 MG TOP SCH ×2 (08:05→19:58)
[2023-03-03] MEDS: Atorvastatin Calcium 10 MG TAB PO SCH (19:58)
[2023-03-03] MEDS: cloNIDine 0.1 MG TAB PO SCH (19:58)
[2023-03-04] MEDS: Aspirin Chewable 81 MG TAB PO SCH (08:00)
[2023-03-04] MEDS: metFORMIN 500 MG TAB PO SCH ×2 (08:00→17:00)
[2023-03-04] MEDS: Carvedilol 12.5 MG TAB PO SCH ×2 (08:03→17:00)
[2023-03-04] MEDS: Ferrous Sulfate 325 MG TAB PO SCH (08:03)
[2023-03-04] MEDS: Amlodipine 5 MG TAB PO SCH (08:03)
[2023-03-04] MEDS: Clopidogrel Bisulfate 75 MG TAB PO SCH (08:04)
[2023-03-04] MEDS: levETIRAcetam 500 MG TAB PO SCH ×2 (08:04→19:55)
[2023-03-04] MEDS: Furosemide 40 MG TAB PO SCH (08:04)
[2023-03-04] MEDS: Emollient 15 oz bottle 450 ML, Triamcinolone Acetonide 200 MG TOP SCH ×2 (08:05→19:56)
[2023-03-04] MEDS: Senokot S 8.6-50 MG TAB PO SCH ×2 (08:05→19:55)
[2023-03-04] MEDS: Atorvastatin Calcium 10 MG TAB PO SCH (19:55)
[2023-03-04] MEDS: cloNIDine 0.1 MG TAB PO SCH (19:55)
[2023-03-05] MEDS: Emollient 15 oz bottle 450 ML, Triamcinolone Acetonide 200 MG TOP SCH ×2 (08:10→20:54)
[2023-03-05] MEDS: Carvedilol 12.5 MG TAB PO SCH ×2 (08:11→17:06)
[2023-03-05] MEDS: Clopidogrel Bisulfate 75 MG TAB PO SCH (08:11)
[2023-03-05] MEDS: metFORMIN 500 MG TAB PO SCH ×2 (08:11→17:05)
[2023-03-05] MEDS: Amlodipine 5 MG TAB PO SCH (08:11)
[2023-03-05] MEDS: levETIRAcetam 500 MG TAB PO SCH ×2 (08:11→20:53)
[2023-03-05] MEDS: Ferrous Sulfate 325 MG TAB PO SCH (08:11)
[2023-03-05] MEDS: Aspirin Chewable 81 MG TAB PO SCH (08:12)
[2023-03-05] MEDS: Furosemide 40 MG TAB PO SCH (08:12)
[2023-03-05] MEDS: Senokot S 8.6-50 MG TAB PO SCH ×2 (08:12→20:53)
[2023-03-05] MEDS: HumaLOG 300 UNITS/3 ML VIAL SC PRN (17:04)
[2023-03-05] MEDS: Atorvastatin Calcium 10 MG TAB PO SCH (20:52)
[2023-03-05] MEDS: cloNIDine 0.1 MG TAB PO SCH (20:53)
[2023-03-06] MEDS: metFORMIN 500 MG TAB PO SCH ×2 (08:21→17:08)
[2023-03-06] MEDS: Aspirin Chewable 81 MG TAB PO SCH (08:21)
[2023-03-06] MEDS: Emollient 15 oz bottle 450 ML, Triamcinolone Acetonide 200 MG TOP SCH ×2 (08:21→21:04)
[2023-03-06] MEDS: Furosemide 40 MG TAB PO SCH (08:22)
[2023-03-06] MEDS: Amlodipine 5 MG TAB PO SCH (08:22)
[2023-03-06] MEDS: Clopidogrel Bisulfate 75 MG TAB PO SCH (08:22)
[2023-03-06] MEDS: Carvedilol 12.5 MG TAB PO SCH ×2 (08:22→17:07)
[2023-03-06] MEDS: levETIRAcetam 500 MG TAB PO SCH ×2 (08:23→21:02)
[2023-03-06] MEDS: Ferrous Sulfate 325 MG TAB PO SCH (08:23)
[2023-03-06] MEDS: Senokot S 8.6-50 MG TAB PO SCH ×2 (08:23→21:02)
[2023-03-06] MEDS: HumaLOG 300 UNITS/3 ML VIAL SC PRN (11:58)
[2023-03-06] MEDS: cloNIDine 0.1 MG TAB PO SCH (21:02)
[2023-03-06] MEDS: Atorvastatin Calcium 10 MG TAB PO SCH (21:02)
[2023-03-07] MEDS: metFORMIN 500 MG TAB PO SCH ×2 (08:12→17:29)
[2023-03-07] MEDS: Carvedilol 12.5 MG TAB PO SCH ×2 (08:15→17:11)
[2023-03-07] MEDS: Amlodipine 5 MG TAB PO SCH (08:15)
[2023-03-07] MEDS: Senokot S 8.6-50 MG TAB PO SCH ×2 (08:16→20:35)
[2023-03-07] MEDS: levETIRAcetam 500 MG TAB PO SCH ×2 (08:16→20:34)
[2023-03-07] MEDS: Clopidogrel Bisulfate 75 MG TAB PO SCH (08:16)
[2023-03-07] MEDS: Ferrous Sulfate 325 MG TAB PO SCH (08:16)
[2023-03-07] MEDS: Furosemide 40 MG TAB PO SCH (08:16)
[2023-03-07] MEDS: Aspirin Chewable 81 MG TAB PO SCH (08:16)
[2023-03-07] MEDS: Emollient 15 oz bottle 450 ML, Triamcinolone Acetonide 200 MG TOP SCH ×2 (08:17→20:35)
[2023-03-07] MEDS: HumaLOG 300 UNITS/3 ML VIAL SC PRN (11:44)
[2023-03-07] MEDS: Atorvastatin Calcium 10 MG TAB PO SCH (20:34)
[2023-03-07] MEDS: cloNIDine 0.1 MG TAB PO SCH (20:35)
[2023-03-08] MEDS: Ferrous Sulfate 325 MG TAB PO SCH (07:50)
[2023-03-08] MEDS: metFORMIN 500 MG TAB PO SCH ×2 (07:51→16:32)
[2023-03-08] MEDS: Carvedilol 12.5 MG TAB PO SCH ×2 (07:52→16:32)
[2023-03-08] MEDS: levETIRAcetam 500 MG TAB PO SCH ×2 (08:35→20:44)
[2023-03-08] MEDS: Aspirin Chewable 81 MG TAB PO SCH (08:35)
[2023-03-08] MEDS: Amlodipine 5 MG TAB PO SCH (08:36)
[2023-03-08] MEDS: Furosemide 40 MG TAB PO SCH (08:36)
[2023-03-08] MEDS: Clopidogrel Bisulfate 75 MG TAB PO SCH (08:38)
[2023-03-08] MEDS: Emollient 15 oz bottle 450 ML, Triamcinolone Acetonide 200 MG TOP SCH ×2 (08:40→20:44)
[2023-03-08] MEDS: Senokot S 8.6-50 MG TAB PO SCH ×2 (08:42→20:44)
[2023-03-08] MEDS: HumaLOG 300 UNITS/3 ML VIAL SC PRN ×2 (12:51→16:32)
[2023-03-08] MEDS: Atorvastatin Calcium 10 MG TAB PO SCH (20:44)
[2023-03-08] MEDS: cloNIDine 0.1 MG TAB PO SCH (20:44)
[2023-03-09] MEDS: metFORMIN 500 MG TAB PO SCH ×2 (08:16→16:54)
[2023-03-09] MEDS: Aspirin Chewable 81 MG TAB PO SCH (08:16)
[2023-03-09] MEDS: Ferrous Sulfate 325 MG TAB PO SCH (08:17)
[2023-03-09] MEDS: Carvedilol 12.5 MG TAB PO SCH ×2 (08:17→16:54)
[2023-03-09] MEDS: Amlodipine 5 MG TAB PO SCH (08:17)
[2023-03-09] MEDS: Senokot S 8.6-50 MG TAB PO SCH ×2 (08:17→20:18)
[2023-03-09] MEDS: levETIRAcetam 500 MG TAB PO SCH ×2 (08:18→20:18)
[2023-03-09] MEDS: Clopidogrel Bisulfate 75 MG TAB PO SCH (08:18)
[2023-03-09] MEDS: Emollient 15 oz bottle 450 ML, Triamcinolone Acetonide 200 MG TOP SCH ×2 (08:18→20:18)
[2023-03-09] MEDS: Furosemide 40 MG TAB PO SCH (08:18)
[2023-03-09] MEDS: HumaLOG 300 UNITS/3 ML VIAL SC PRN (12:09)
[2023-03-09] MEDS: cloNIDine 0.1 MG TAB PO SCH (20:18)
[2023-03-09] MEDS: Atorvastatin Calcium 10 MG TAB PO SCH (20:18)
[2023-03-10 05:06] LABS: Hemoglobin 9.9 g/dL (12.0-16.0); Platelet Count 155 10x3/uL (130-400)
[2023-03-10] MEDS: Amlodipine 5 MG TAB PO SCH (08:03)
[2023-03-10] MEDS: Aspirin Chewable 81 MG TAB PO SCH (08:03)
[2023-03-10] MEDS: Senokot S 8.6-50 MG TAB PO SCH ×2 (08:03→20:28)
[2023-03-10] MEDS: metFORMIN 500 MG TAB PO SCH ×2 (08:04→17:28)
[2023-03-10] MEDS: Furosemide 40 MG TAB PO SCH (08:04)
[2023-03-10] MEDS: Clopidogrel Bisulfate 75 MG TAB PO SCH (08:04)
[2023-03-10] MEDS: Carvedilol 12.5 MG TAB PO SCH ×2 (08:04→17:28)
[2023-03-10] MEDS: levETIRAcetam 500 MG TAB PO SCH ×2 (08:04→20:28)
[2023-03-10] MEDS: Ferrous Sulfate 325 MG TAB PO SCH (08:04)
[2023-03-10] MEDS: Emollient 15 oz bottle 450 ML, Triamcinolone Acetonide 200 MG TOP SCH ×2 (08:04→20:28)
[2023-03-10] MEDS: Atorvastatin Calcium 10 MG TAB PO SCH (20:28)
[2023-03-10] MEDS: cloNIDine 0.1 MG TAB PO SCH (20:28)
[2023-03-11] MEDS: metFORMIN 500 MG TAB PO SCH ×2 (08:25→16:58)
[2023-03-11] MEDS: levETIRAcetam 500 MG TAB PO SCH ×2 (08:26→20:22)
[2023-03-11] MEDS: Aspirin Chewable 81 MG TAB PO SCH (08:26)
[2023-03-11] MEDS: Amlodipine 5 MG TAB PO SCH (08:26)
[2023-03-11] MEDS: Clopidogrel Bisulfate 75 MG TAB PO SCH (08:26)
[2023-03-11] MEDS: Furosemide 40 MG TAB PO SCH (08:26)
[2023-03-11] MEDS: Ferrous Sulfate 325 MG TAB PO SCH (08:26)
[2023-03-11] MEDS: Carvedilol 12.5 MG TAB PO SCH ×2 (08:26→16:59)
[2023-03-11] MEDS: Senokot S 8.6-50 MG TAB PO SCH ×2 (08:27→20:22)
[2023-03-11] MEDS: Emollient 15 oz bottle 450 ML, Triamcinolone Acetonide 200 MG TOP SCH ×2 (08:27→20:22)
[2023-03-11] MEDS: Atorvastatin Calcium 10 MG TAB PO SCH (20:21)
[2023-03-11] MEDS: cloNIDine 0.1 MG TAB PO SCH (20:22)
[2023-03-12] MEDS: Senokot S 8.6-50 MG TAB PO SCH ×2 (08:02→22:38)
[2023-03-12] MEDS: Carvedilol 12.5 MG TAB PO SCH ×2 (08:02→17:01)
[2023-03-12] MEDS: Emollient 15 oz bottle 450 ML, Triamcinolone Acetonide 200 MG TOP SCH ×2 (08:02→20:14)
[2023-03-12] MEDS: Ferrous Sulfate 325 MG TAB PO SCH (08:02)
[2023-03-12] MEDS: Amlodipine 5 MG TAB PO SCH (08:03)
[2023-03-12] MEDS: Clopidogrel Bisulfate 75 MG TAB PO SCH (08:03)
[2023-03-12] MEDS: levETIRAcetam 500 MG TAB PO SCH ×2 (08:03→20:12)
[2023-03-12] MEDS: Furosemide 40 MG TAB PO SCH (08:03)
[2023-03-12] MEDS: metFORMIN 500 MG TAB PO SCH ×2 (08:03→17:01)
[2023-03-12] MEDS: Aspirin Chewable 81 MG TAB PO SCH (08:03)
[2023-03-12] MEDS: HumaLOG 300 UNITS/3 ML VIAL SC PRN (17:02)
[2023-03-12] MEDS: Atorvastatin Calcium 10 MG TAB PO SCH (20:12)
[2023-03-12] MEDS: cloNIDine 0.1 MG TAB PO SCH (20:13)
[2023-03-13] MEDS: Carvedilol 12.5 MG TAB PO SCH ×2 (08:10→17:07)
[2023-03-13] MEDS: Ferrous Sulfate 325 MG TAB PO SCH (08:10)
[2023-03-13] MEDS: Senokot S 8.6-50 MG TAB PO SCH ×2 (08:10→20:23)
[2023-03-13] MEDS: Aspirin Chewable 81 MG TAB PO SCH (08:10)
[2023-03-13] MEDS: metFORMIN 500 MG TAB PO SCH ×2 (08:10→17:07)
[2023-03-13] MEDS: Amlodipine 5 MG TAB PO SCH (08:10)
[2023-03-13] MEDS: levETIRAcetam 500 MG TAB PO SCH ×2 (08:10→20:24)
[2023-03-13] MEDS: Clopidogrel Bisulfate 75 MG TAB PO SCH (08:10)
[2023-03-13] MEDS: Emollient 15 oz bottle 450 ML, Triamcinolone Acetonide 200 MG TOP SCH ×2 (08:10→20:25)
[2023-03-13] MEDS: Furosemide 40 MG TAB PO SCH (08:10)
[2023-03-13] MEDS: cloNIDine 0.1 MG TAB PO SCH (20:23)
[2023-03-13] MEDS: Atorvastatin Calcium 10 MG TAB PO SCH (20:24)
[2023-03-14] MEDS: metFORMIN 500 MG TAB PO SCH ×2 (07:55→16:55)
[2023-03-14] MEDS: Amlodipine 5 MG TAB PO SCH (07:55)
[2023-03-14] MEDS: Aspirin Chewable 81 MG TAB PO SCH (07:55)
[2023-03-14] MEDS: Furosemide 40 MG TAB PO SCH (07:55)
[2023-03-14] MEDS: levETIRAcetam 500 MG TAB PO SCH ×2 (07:55→20:41)
[2023-03-14] MEDS: Carvedilol 12.5 MG TAB PO SCH ×2 (07:55→16:55)
[2023-03-14] MEDS: Ferrous Sulfate 325 MG TAB PO SCH (07:55)
[2023-03-14] MEDS: Clopidogrel Bisulfate 75 MG TAB PO SCH (07:55)
[2023-03-14] MEDS: Senokot S 8.6-50 MG TAB PO SCH ×2 (07:55→20:41)
[2023-03-14] MEDS: Emollient 15 oz bottle 450 ML, Triamcinolone Acetonide 200 MG TOP SCH ×2 (07:56→20:41)
[2023-03-14] MEDS: cloNIDine 0.1 MG TAB PO SCH (20:39)
[2023-03-14] MEDS: Atorvastatin Calcium 10 MG TAB PO SCH (20:39)
[2023-03-15] MEDS: Emollient 15 oz bottle 450 ML, Triamcinolone Acetonide 200 MG TOP SCH ×2 (08:07→20:13)
[2023-03-15] MEDS: metFORMIN 500 MG TAB PO SCH ×2 (08:08→17:24)
[2023-03-15] MEDS: Carvedilol 12.5 MG TAB PO SCH ×2 (08:08→17:24)
[2023-03-15] MEDS: Aspirin Chewable 81 MG TAB PO SCH (08:08)
[2023-03-15] MEDS: Amlodipine 5 MG TAB PO SCH (08:08)
[2023-03-15] MEDS: Ferrous Sulfate 325 MG TAB PO SCH (08:08)
[2023-03-15] MEDS: Clopidogrel Bisulfate 75 MG TAB PO SCH (08:08)
[2023-03-15] MEDS: levETIRAcetam 500 MG TAB PO SCH ×2 (08:08→20:13)
[2023-03-15] MEDS: Furosemide 40 MG TAB PO SCH (08:08)
[2023-03-15] MEDS: Senokot S 8.6-50 MG TAB PO SCH ×2 (08:09→20:13)
[2023-03-15 13:05] VITALS: BMI 29.0
[2023-03-15] MEDS: Atorvastatin Calcium 10 MG TAB PO SCH (20:12)
[2023-03-15] MEDS: cloNIDine 0.1 MG TAB PO SCH (20:13)
[2023-03-16 06:18] LABS: #Lymphocytes 1.5 thou/uL (1.20-3.40); #Monocytes 0.2 thou/uL (0.11-0.59); #Neutrophils 1.7 thou/uL (1.40-6.50); %Basophils 0.7 % (0.0-1.0); %Eosinophils 1.1 % (0.0-10.0); %Lymphocytes 43.2 % (21.0-51.0); %Monocytes 6.9 % (0.0-10.0); %Neutrophils 48.1 % (42.0-75.0); Hemoglobin 10.1 g/dL (12.0-16.0); Mean Corpuscular HGB CONC 31.3 g/dL (32.0-36.0); Mean Corpuscular Hemoglobin 26.8 pg (27.0-31.0); Mean Corpuscular Volume 85.7 fl (78.0-98.0); Mean Platelet Volume 8.7 fL (7.4-10.4); Platelet Count 195 10x3/uL (130-400); RBC Distribution Width 12.8 % (11.5-14.5); Red Blood Cell (RBC) Count 3.79 mill/uL (4.20-5.40); White Blood Cell (WBC) Count 3.4 10x3/uL (4.8-10.8)
[2023-03-16 06:24] LABS: Anion Gap 14 mmol/L (10-20); BUN (Urea Nitrogen) 60 mg/dL (9.8-20.1); Calc. Creatinine Clearance 38 mL/min (70-130); Calcium 9.6 mg/dL (7.8-10.44); Carbon Dioxide 27 mmol/L (23-31); Chloride 105 mmol/L (98-107); Estimated GFR 32; Glucose 131 mg/dL (83-110); Potassium 4.7 mmol/L (3.5-5.1); Sodium 141 mmol/L (136-145)
[2023-03-16] MEDS: Emollient 15 oz bottle 450 ML, Triamcinolone Acetonide 200 MG TOP SCH ×2 (08:07→21:25)
[2023-03-16] MEDS: Aspirin Chewable 81 MG TAB PO SCH (08:07)
[2023-03-16] MEDS: Ferrous Sulfate 325 MG TAB PO SCH (08:08)
[2023-03-16] MEDS: Furosemide 40 MG TAB PO SCH (08:08)
[2023-03-16] MEDS: levETIRAcetam 500 MG TAB PO SCH ×2 (08:08→21:25)
[2023-03-16] MEDS: Carvedilol 12.5 MG TAB PO SCH ×2 (08:08→17:01)
[2023-03-16] MEDS: Senokot S 8.6-50 MG TAB PO SCH ×2 (08:08→21:25)
[2023-03-16] MEDS: Amlodipine 5 MG TAB PO SCH (08:08)
[2023-03-16] MEDS: Clopidogrel Bisulfate 75 MG TAB PO SCH (08:08)
[2023-03-16] MEDS: metFORMIN 500 MG TAB PO SCH ×2 (08:08→17:01)
[2023-03-16] MEDS: HumaLOG 300 UNITS/3 ML VIAL SC PRN (12:09)
[2023-03-16] MEDS: Atorvastatin Calcium 10 MG TAB PO SCH (21:25)
[2023-03-16] MEDS: cloNIDine 0.1 MG TAB PO SCH (21:25)
[2023-03-17] MEDS: Emollient 15 oz bottle 450 ML, Triamcinolone Acetonide 200 MG TOP SCH ×2 (08:41→21:21)
[2023-03-17] MEDS: Senokot S 8.6-50 MG TAB PO SCH ×2 (08:42→21:21)
[2023-03-17] MEDS: Clopidogrel Bisulfate 75 MG TAB PO SCH (08:42)
[2023-03-17] MEDS: metFORMIN 500 MG TAB PO SCH ×2 (08:42→17:21)
[2023-03-17] MEDS: Ferrous Sulfate 325 MG TAB PO SCH (08:42)
[2023-03-17] MEDS: Aspirin Chewable 81 MG TAB PO SCH (08:42)
[2023-03-17] MEDS: levETIRAcetam 500 MG TAB PO SCH ×2 (08:42→21:21)
[2023-03-17] MEDS: Amlodipine 5 MG TAB PO SCH (08:42)
[2023-03-17] MEDS: Furosemide 40 MG TAB PO SCH (08:43)
[2023-03-17] MEDS: Carvedilol 12.5 MG TAB PO SCH ×2 (08:43→17:21)
[2023-03-17] MEDS: Atorvastatin Calcium 10 MG TAB PO SCH (21:20)
[2023-03-17] MEDS: cloNIDine 0.1 MG TAB PO SCH (21:21)
[2023-03-18] MEDS: metFORMIN 500 MG TAB PO SCH (08:47)
[2023-03-18] MEDS: Carvedilol 12.5 MG TAB PO SCH (08:47)
[2023-03-18] MEDS: Amlodipine 5 MG TAB PO SCH (08:47)
[2023-03-18] MEDS: Furosemide 40 MG TAB PO SCH (08:48)
[2023-03-18] MEDS: Clopidogrel Bisulfate 75 MG TAB PO SCH (08:48)
[2023-03-18] MEDS: levETIRAcetam 500 MG TAB PO SCH (08:48)
[2023-03-18] MEDS: HumaLOG 300 UNITS/3 ML VIAL SC PRN (08:48)
[2023-03-18] MEDS: Ferrous Sulfate 325 MG TAB PO SCH (08:48)
[2023-03-18] MEDS: Aspirin Chewable 81 MG TAB PO SCH (08:48)
[2023-03-18] MEDS: Emollient 15 oz bottle 450 ML, Triamcinolone Acetonide 200 MG TOP SCH (08:48)
[2023-03-18] MEDS: Senokot S 8.6-50 MG TAB PO SCH (08:48)
[2023-03-18 08:49] VITALS: BP 124/67
[2023-03-18 13:19] VITALS: TEMP 98.6
== END 2023-03-18 13:45 | disposition home health service (06) | DRG 948 ==
LOC: MADMS 19:10
PROVIDERS: ADMIT Family Medicine; ATTEND Family Medicine
DX: R53.1 Weakness (principal); I13.0 Hypertensive heart and chronic kidney disease with heart failure and stage 1 through stage 4 chronic kidney disease, or unspecified chronic kidney disease; N30.00 Acute cystitis without hematuria; G40.909 Epilepsy, unspecified, not intractable, without status epilepticus; E11.22 Type 2 diabetes mellitus with diabetic chronic kidney disease; R32 Unspecified urinary incontinence; G30.9 Alzheimer's disease, unspecified; F01.50 Vascular dementia, unspecified severity, without behavioral disturbance, psychotic disturbance, mood disturbance, and anxiety; F02.80 Dementia in other diseases classified elsewhere, unspecified severity, without behavioral disturbance, psychotic disturbance, mood disturbance, and anxiety; D63.1 Anemia in chronic kidney disease; I25.10 Atherosclerotic heart disease of native coronary artery without angina pectoris; R53.81 Other malaise; I50.9 Heart failure, unspecified; Z79.899 Other long term (current) drug therapy; Z79.82 Long term (current) use of aspirin; Z86.73 Personal history of transient ischemic attack (TIA), and cerebral infarction without residual deficits; Z79.02 Long term (current) use of antithrombotics/antiplatelets; Z79.84 Long term (current) use of oral hypoglycemic drugs; N18.32 Chronic kidney disease, stage 3b
CPT/HCPCS: 36415; 36416; 80048; 80177; 81015; 82565; 85014; 85018; 85025; 85049; 87077; 87086; 87186; 97602; J1650; J1815; J3301

== ENCOUNTER 2023-05-31 12:14 | Emergency (ER) | payer OTHER | END 2023-05-31 13:05 | disposition home or self-care (01) | LOC: MADERS 12:14 | DX: I87.2 Venous insufficiency (chronic) (peripheral) (principal); E11.9 Type 2 diabetes mellitus without complications; I11.0 Hypertensive heart disease with heart failure; I50.9 Heart failure, unspecified; E78.00 Pure hypercholesterolemia, unspecified; Z86.73 Personal history of transient ischemic attack (TIA), and cerebral infarction without residual deficits; Z79.82 Long term (current) use of aspirin; Z79.84 Long term (current) use of oral hypoglycemic drugs; Z79.899 Other long term (current) drug therapy | CPT/HCPCS: 99282 ==

== ENCOUNTER 2023-06-12 17:23 | Emergency (ER) | payer OTHER | END 2023-06-12 18:10 | disposition home or self-care (01) | LOC: MADERS 17:23 | DX: R01.1 Cardiac murmur, unspecified (principal); I11.0 Hypertensive heart disease with heart failure; I50.9 Heart failure, unspecified; E11.9 Type 2 diabetes mellitus without complications; Z86.73 Personal history of transient ischemic attack (TIA), and cerebral infarction without residual deficits; Z89.411 Acquired absence of right great toe | CPT/HCPCS: 71046 ==

== ENCOUNTER 2023-07-05 19:23 | Emergency (ER) | payer OTHER ==
[2023-07-05 21:10] LABS: Hematocrit 29.8 % (36.0-47.0); Hemoglobin 9.6 g/dL (12.0-16.0); Mean Corpuscular HGB CONC 32.3 g/dL (32.0-36.0); Mean Corpuscular Hemoglobin 27.5 pg (27.0-31.0); Mean Corpuscular Volume 85.2 fl (78.0-98.0); Mean Platelet Volume 8.3 fL (7.4-10.4); Platelet Count 218 10x3/uL (130-400); RBC Distribution Width 12.8 % (11.5-14.5); White Blood Cell (WBC) Count 4.1 10x3/uL (4.8-10.8)
[2023-07-05 21:11] LABS: Anion Gap 15 mmol/L (10-20); BUN (Urea Nitrogen) 49 mg/dL (9.8-20.1); Calc. Creatinine Clearance 0 mL/min (70-130); Calcium 9.4 mg/dL (7.8-10.44); Carbon Dioxide 30 mmol/L (23-31); Chloride 92 mmol/L (98-107); Estimated GFR 28; Glucose 213 mg/dL (83-110); Potassium 4.6 mmol/L (3.5-5.1); Sodium 132 mmol/L (136-145)
[2023-07-05 21:17] LABS: Troponin I 0.018 ng/mL (< 0.028)
[2023-07-05] MEDS ORDERED: Acetaminophen 500 MG TAB ONE (21:20)
[2023-07-05 21:22] LABS: Bilirubin Negative (Negative); Blood, Urine Trace (Negative); Clarity Slightly Cloudy (Clear); Glucose, Urine (Dipstick) Negative (Negative); Ketone, Urine Negative (Negative); Leukocyte Small (Negative); Nitrite Negative (Negative); Protein, Urine (Dipstick) 100 mg/dL (Neg-Trace); Specific Gravity, Urine 1.015 (1.005-1.030); Urobilinogen 0.2 mg/dL (Less than 2); pH, Urine 6.5 (5.0-9.0)
[2023-07-05 21:31] LABS: CAUTI Indications for Culture Alt mental st,lethar; RBC/HPF 0-3 HPF (0-3); WBC/HPF 21-50 HPF (0-3)
[2023-07-05 21:32] LABS: Bacteria/HPF 4+ HPF (None Seen); Urine Culture Reflex Yes Yes
[2023-07-05 21:43] LABS: Band 1 % (5-11); Hypochromia SLIGHT = 6-15 cells (100X) (0-5/hpf); Lymphocytes 39 % (21-51); MDiff Complete? YES; Monocytes 10 % (0-10); Neutrophil 50 % (42-75); Platelet Adequacy Comment Appears Adequate
[2023-07-05 22:21] LABS: SARS-CoV-2 NAA Rapid Test Not Detected (NotDetected)
[2023-07-05] MEDS ORDERED: Amoxicillin/Potassium Clav 875 MG TAB ONE (22:52)
== END 2023-07-05 23:00 | disposition home or self-care (01) ==
LOC: MADERS 19:23
DX: N39.0 Urinary tract infection, site not specified (principal); K21.9 Gastro-esophageal reflux disease without esophagitis; I11.0 Hypertensive heart disease with heart failure; I50.9 Heart failure, unspecified; E78.00 Pure hypercholesterolemia, unspecified; E11.9 Type 2 diabetes mellitus without complications
CPT/HCPCS: 71045; 80048; 81001; 84484; 85025; 87077; 87086; 87186; 87804; 93005; U0002

== ENCOUNTER 2023-07-13 12:14 | Emergency (ER) | payer OTHER | END 2023-07-13 13:55 | disposition home or self-care (01) | LOC: MADERS 12:14 | DX: R05.9 Cough, unspecified (principal); K21.9 Gastro-esophageal reflux disease without esophagitis; E78.5 Hyperlipidemia, unspecified; E11.9 Type 2 diabetes mellitus without complications; I11.0 Hypertensive heart disease with heart failure; I50.9 Heart failure, unspecified; E78.00 Pure hypercholesterolemia, unspecified; Z79.899 Other long term (current) drug therapy; Z79.82 Long term (current) use of aspirin; Z79.84 Long term (current) use of oral hypoglycemic drugs | CPT/HCPCS: 71045 ==

== ENCOUNTER 2024-03-31 15:46 | Outpatient (CLI) | payer OTHER | END 2024-03-31 15:47 | disposition home or self-care (01) | LOC: MADRAD 15:46 | PROVIDERS: ATTEND Family Medicine | DX: M79.674 Pain in right toe(s) (principal); M79.89 Other specified soft tissue disorders; I70.90 Unspecified atherosclerosis; M77.8 Other enthesopathies, not elsewhere classified; Z89.411 Acquired absence of right great toe ==

== ENCOUNTER 2024-09-22 11:34 | Emergency (ER) | payer OTHER ==
[2024-09-22 13:25] LABS: Bilirubin Negative (Negative); Blood, Urine Negative (Negative); Clarity Cloudy (Clear); Glucose, Urine (Dipstick) 500 mg/dL (Negative); Ketone, Urine Negative (Negative); Leukocyte Small (Negative); Nitrite Positive (Negative); Protein, Urine (Dipstick) 100 mg/dL (Neg-Trace); Urobilinogen 0.2 mg/dL (Less than 2); pH, Urine 5.5 (5.0-9.0)
[2024-09-22 13:33] LABS: ALT (SGPT) 18 U/L (8-55); AST (SGOT) 20 U/L (5-34); Albumin 3.5 g/dL (3.4-4.8); Alkaline Phosphatase 76 U/L (40-110); Anion Gap 18 mmol/L (10-20); BUN (Urea Nitrogen) 47 mg/dL (9.8-20.1); Bilirubin, Total 0.5 mg/dL (0.2-1.2); Calc. Creatinine Clearance 0 mL/min (70-130); Calcium 9.5 mg/dL (7.8-10.44); Carbon Dioxide 17 mmol/L (23-31); Chloride 105 mmol/L (98-107); Estimated GFR 17; Globulin 5.1 g/dL (2.4-3.5); Glucose 244 mg/dL (83-110); Potassium 5.3 mmol/L (3.5-5.1); Protein, Total 8.6 g/dL (5.8-8.1); Sodium 135 mmol/L (136-145)
[2024-09-22 13:37] LABS: Bacteria/HPF 4+ HPF (None Seen); CAUTI Indications for Culture Fever or rigors; Squamous Epithelial 0-3 HPF (0-3)
[2024-09-22 13:38] LABS: Urine Culture Reflex Yes Yes
[2024-09-22 13:40] LABS: Hematocrit 32.3 % (36.0-47.0); Hemoglobin 9.9 g/dL (12.0-16.0); Mean Corpuscular HGB CONC 30.8 g/dL (32.0-36.0); Mean Corpuscular Volume 84.5 fl (78.0-98.0); Mean Platelet Volume 7.7 fL (7.4-10.4); Platelet Count 149 10x3/uL (130-400); RBC Distribution Width 12.5 % (11.5-14.5); Red Blood Cell (RBC) Count 3.83 mill/uL (4.20-5.40); White Blood Cell (WBC) Count 7.9 10x3/uL (4.8-10.8)
[2024-09-22 13:41] LABS: MDiff Complete? YES; Manual Diff?? YES
[2024-09-22 13:51] LABS: Band 4 % (5-11); Hypochromia SLIGHT = 6-15 cells (100X) (0-5/hpf); Lymphocytes 9 % (21-51); Monocytes 4 % (0-10); Neutrophil 77 % (42-75); Platelet Adequacy Comment Appears Decreased; Reactive Lymphocytes 6 % (0-10)
[2024-09-22] MEDS ORDERED: Sodium Chloride 0.9% 100 ML ONE (14:02)
[2024-09-22] MEDS ORDERED: cefTRIAXone (ROCEPHIN) 2 GM VIAL ONE (14:02)
[2024-09-22] MEDS ORDERED: Sodium Chloride 0.9% 1,000 ML ONE ×2 (14:02→17:27)
[2024-09-22] MEDS ORDERED: Ibuprofen 200 MG TAB ONE (19:31)
== END 2024-09-22 19:54 | disposition short-term general hospital (02) ==
LOC: MADERS 11:34
DX: N39.0 Urinary tract infection, site not specified (principal); M79.661 Pain in right lower leg; M79.662 Pain in left lower leg; I13.0 Hypertensive heart and chronic kidney disease with heart failure and stage 1 through stage 4 chronic kidney disease, or unspecified chronic kidney disease; E11.22 Type 2 diabetes mellitus with diabetic chronic kidney disease; N18.9 Chronic kidney disease, unspecified; I50.9 Heart failure, unspecified; R79.1 Abnormal coagulation profile; E78.00 Pure hypercholesterolemia, unspecified; K21.9 Gastro-esophageal reflux disease without esophagitis; Z79.82 Long term (current) use of aspirin; Z79.899 Other long term (current) drug therapy
CPT/HCPCS: 71045; 80053; 81001; 83605; 85025; 85379; 87040; 87077; 87086; 87149 ×2; 87186; 93005; 94760; J0696; J7030; 51701; 96374

== ENCOUNTER 2024-09-28 18:22 | Inpatient (IN) | payer OTHER ==
[2024-09-28] MEDS ORDERED: Albuterol 200 PUFF (6.7GM INHALER) INH PRN (19:05)
[2024-09-28] MEDS ORDERED: Glucagon 1 MG/ML KIT IM PRN (19:10)
[2024-09-28] MEDS ORDERED: Dextrose 50% Abboject 50 ML SYRINGE SLOW IVP PRN (19:10)
[2024-09-28] MEDS ORDERED: cefTRIAXone (ROCEPHIN) 2 GM VIAL IVPB SCH (19:15)
[2024-09-28 19:24] VITALS: BMI 32.3
[2024-09-28] MEDS: Heparin 5,000 UNITS/ML VIAL SC SCH (20:23)
[2024-09-28] MEDS: Senokot 8.6 MG TAB PO SCH (20:24)
[2024-09-28] MEDS: levETIRAcetam 500 MG TAB PO SCH (20:24)
[2024-09-28] MEDS: Atorvastatin Calcium 10 MG TAB PO SCH (20:24)
[2024-09-28] MEDS: Carvedilol 12.5 MG TAB PO SCH (20:24)
[2024-09-28] MEDS: FLU (Fluad Triv) TS24-25 (65UP)/MF59C/PF 45 MCG/0.5 ML Syringe IM ONE (22:26)
[2024-09-29 05:19] LABS: ALT (SGPT) 15 U/L (8-55); AST (SGOT) 22 U/L (5-34); Albumin 2.6 g/dL (3.4-4.8); Alkaline Phosphatase 63 U/L (40-110); Anion Gap 14 mmol/L (10-20); BUN (Urea Nitrogen) 30 mg/dL (9.8-20.1); Bilirubin, Total 0.3 mg/dL (0.2-1.2); Calc. Creatinine Clearance 40 mL/min (70-130); Calcium 9.4 mg/dL (7.8-10.44); Carbon Dioxide 25 mmol/L (23-31); Chloride 105 mmol/L (98-107); Estimated GFR 29; Globulin 5.3 g/dL (2.4-3.5); Glucose 250 mg/dL (83-110); Potassium 4.6 mmol/L (3.5-5.1); Protein, Total 7.9 g/dL (5.8-8.1); Sodium 139 mmol/L (136-145)
[2024-09-29 05:33] LABS: Eosinophils 2 % (0-10); Hematocrit 31.7 % (36.0-47.0); Hemoglobin 9.6 g/dL (12.0-16.0); Lymphocytes 25 % (21-51); MDiff Complete? YES; Mean Corpuscular HGB CONC 30.3 g/dL (32.0-36.0); Mean Corpuscular Hemoglobin 25.2 pg (27.0-31.0); Mean Corpuscular Volume 83.3 fl (78.0-98.0); Mean Platelet Volume 7.1 fL (7.4-10.4); Monocytes 10 % (0-10); Neutrophil 63 % (42-75); Platelet Count 230 10x3/uL (130-400); RBC Distribution Width 12.1 % (11.5-14.5); White Blood Cell (WBC) Count 5.1 10x3/uL (4.8-10.8)
[2024-09-29] MEDS: Amlodipine 5 MG TAB PO SCH (09:01)
[2024-09-29] MEDS: Empagliflozin 25 MG TAB PO SCH (09:02)
[2024-09-29] MEDS: Multivitamin W/ Minerals 1 TAB PO SCH (09:02)
[2024-09-29] MEDS: Ferrous Sulfate 325 MG TAB PO SCH (09:02)
[2024-09-29] MEDS: Saxagliptin 2.5 MG TAB PO SCH (09:02)
[2024-09-29] MEDS: Aspirin Chewable 81 MG TAB PO SCH (09:02)
[2024-09-29] MEDS: Pantoprazole 40 MG DR.TAB PO SCH (09:02)
[2024-09-29] MEDS: Fluticasone Propionate Nasal Spray 16 gm Bottle NASAL SCH (09:03)
[2024-09-29] MEDS: cefTRIAXone\\ROCEPHIN 2 GM in Sodium Chloride 0.9% 100 ML IVPB SCH (12:02)
[2024-09-29] MEDS: Insulin Regular, Human 100 UNIT/ML 10 ML VIAL SC PRN (12:03)
[2024-09-29] MEDS: traMADol HCl 50 MG TAB PO PRN (18:39)
[2024-09-30] MEDS: EPOETIN ALFA-EPBX (ESRD) 10,000 UNITS/ML VIAL SC SCH (09:29)
[2024-09-30] MEDS: Acetaminophen 500 MG TAB PO PRN (20:08)
[2024-09-30] MEDS: hydrOXYzine 25 MG TAB PO PRN (23:06)
[2024-10-04] MEDS: Carvedilol 6.25 MG TAB ONE (20:10)
[2024-10-04] MEDS: Carvedilol 6.25 MG TAB PO SCH (21:03)
[2024-10-05] MEDS: Carvedilol 6.25 MG TAB ONE (08:41)
[2024-10-05] MEDS: Carvedilol 12.5 MG TAB PO SCH (08:48)
[2024-10-05] MEDS: Carvedilol 6.25 MG TAB PO SCH (21:20)
[2024-10-06] MEDS: Carvedilol 6.25 MG TAB PO SCH (08:45)
[2024-10-06 09:05] LABS: Anion Gap 17 mmol/L (10-20); BUN (Urea Nitrogen) 28 mg/dL (9.8-20.1); Calc. Creatinine Clearance 41 mL/min (70-130); Calcium 9.4 mg/dL (7.8-10.44); Carbon Dioxide 19 mmol/L (23-31); Chloride 104 mmol/L (98-107); Estimated GFR 31; Glucose 218 mg/dL (83-110); Potassium 5.2 mmol/L (3.5-5.1); Sodium 135 mmol/L (136-145)
[2024-10-06 09:09] LABS: #Eosinophils 0.2 thou/uL (0.0-0.7); #Lymphocytes 1.7 thou/uL (1.20-3.40); #Monocytes 0.5 thou/uL (0.11-0.59); #Neutrophils 3.1 thou/uL (1.40-6.50); %Basophils 0.7 % (0.0-1.0); %Lymphocytes 31.4 % (21.0-51.0); %Monocytes 8.9 % (0.0-10.0); %Neutrophils 56.1 % (42.0-75.0); Hematocrit 29.6 % (36.0-47.0); Hemoglobin 8.7 g/dL (12.0-16.0); Mean Corpuscular HGB CONC 29.8 g/dL (32.0-36.0); Mean Corpuscular Hemoglobin 24.8 pg (27.0-31.0); Mean Platelet Volume 7.1 fL (7.4-10.4); Platelet Count 381 10x3/uL (130-400); RBC Distribution Width 12.1 % (11.5-14.5); Red Blood Cell (RBC) Count 3.53 mill/uL (4.20-5.40); White Blood Cell (WBC) Count 5.5 10x3/uL (4.8-10.8)
[2024-10-06 09:12] LABS: Anisocytosis SLIGHT = 6-15 cells (100X) (0-5/hpf)
[2024-10-06 09:13] LABS: Platelet Adequacy Comment Appears Adequate
[2024-10-09 05:22] LABS: Hematocrit 29.4 % (36.0-47.0); Hemoglobin 9.2 g/dL (12.0-16.0); Mean Corpuscular HGB CONC 31.4 g/dL (32.0-36.0); Mean Corpuscular Volume 82.7 fl (78.0-98.0); Mean Platelet Volume 6.7 fL (7.4-10.4); Platelet Count 368 10x3/uL (130-400); RBC Distribution Width 12.4 % (11.5-14.5); Red Blood Cell (RBC) Count 3.55 mill/uL (4.20-5.40); White Blood Cell (WBC) Count 5.9 10x3/uL (4.8-10.8)
[2024-10-09 05:36] LABS: Anion Gap 17 mmol/L (10-20); BUN (Urea Nitrogen) 33 mg/dL (9.8-20.1); Calc. Creatinine Clearance 37 mL/min (70-130); Calcium 9.2 mg/dL (7.8-10.44); Carbon Dioxide 18 mmol/L (23-31); Chloride 106 mmol/L (98-107); Estimated GFR 27; Glucose 178 mg/dL (83-110); Potassium 5.3 mmol/L (3.5-5.1); Sodium 136 mmol/L (136-145)
[2024-10-09] MEDS: Sodium Bicarbonate Tab 325 MG TAB PO SCH (08:26)
[2024-10-09] MEDS: Sodium Chloride 0.9% 1,000 ML IV SCH (08:27)
[2024-10-09] MEDS: Carvedilol 12.5 MG TAB PO SCH (20:37)
[2024-10-12 05:33] LABS: Anion Gap 15 mmol/L (10-20); BUN (Urea Nitrogen) 38 mg/dL (9.8-20.1); Calc. Creatinine Clearance 39 mL/min (70-130); Carbon Dioxide 19 mmol/L (23-31); Chloride 108 mmol/L (98-107); Estimated GFR 29; Glucose 154 mg/dL (83-110); Sodium 137 mmol/L (136-145)
[2024-10-13] MEDS: Saxagliptin 5 MG TABLET PO SCH (08:28)
[2024-10-15] MEDS: Emollient 15 oz bottle 450 ML, Triamcinolone Acetonide 200 MG TOP SCH (21:34)
[2024-10-18] MEDS: Sertraline 25 MG TAB PO SCH (08:55)
[2024-10-23 05:30] LABS: Hematocrit 30.5 % (36.0-47.0); Hemoglobin 9.2 g/dL (12.0-16.0); Mean Corpuscular HGB CONC 30.1 g/dL (32.0-36.0); Mean Corpuscular Hemoglobin 25.6 pg (27.0-31.0); Mean Platelet Volume 6.9 fL (7.4-10.4); Platelet Count 221 10x3/uL (130-400); RBC Distribution Width 14.9 % (11.5-14.5); Red Blood Cell (RBC) Count 3.59 mill/uL (4.20-5.40); White Blood Cell (WBC) Count 4.6 10x3/uL (4.8-10.8)
[2024-10-23 05:46] LABS: Anion Gap 15 mmol/L (10-20); BUN (Urea Nitrogen) 42 mg/dL (9.8-20.1); Calc. Creatinine Clearance 37 mL/min (70-130); Carbon Dioxide 19 mmol/L (23-31); Chloride 108 mmol/L (98-107); Estimated GFR 28; Glucose 203 mg/dL (83-110); Potassium 5.1 mmol/L (3.5-5.1); Sodium 137 mmol/L (136-145)
[2024-10-26 09:37] VITALS: BMI 31.4
[2024-10-30 05:38] LABS: Anion Gap 13 mmol/L (10-20); BUN (Urea Nitrogen) 41 mg/dL (9.8-20.1); Calc. Creatinine Clearance 38 mL/min (70-130); Calcium 9.2 mg/dL (7.8-10.44); Carbon Dioxide 21 mmol/L (23-31); Chloride 109 mmol/L (98-107); Estimated GFR 29; Glucose 186 mg/dL (83-110); Sodium 138 mmol/L (136-145)
[2024-10-30 05:53] LABS: Hematocrit 30.7 % (36.0-47.0); Hemoglobin 9.1 g/dL (12.0-16.0); Mean Corpuscular HGB CONC 29.6 g/dL (32.0-36.0); Mean Corpuscular Hemoglobin 25.3 pg (27.0-31.0); Mean Corpuscular Volume 85.4 fl (78.0-98.0); Mean Platelet Volume 7.7 fL (7.4-10.4); Platelet Count 240 10x3/uL (130-400); RBC Distribution Width 15.4 % (11.5-14.5); Red Blood Cell (RBC) Count 3.59 mill/uL (4.20-5.40); White Blood Cell (WBC) Count 4.7 10x3/uL (4.8-10.8)
[2024-10-31] MEDS ORDERED: Insulin Regular, Human 100 UNIT/ML 10 ML VIAL SC PRN (01:06)
[2024-10-31] MEDS ORDERED: Glucagon 1 MG/ML KIT IM PRN (01:15)
[2024-10-31] MEDS ORDERED: Dextrose 5% in Water 1,000 ML IV PRN (01:15)
[2024-11-01] MEDS: Insulin Regular, Human 100 UNIT/ML 10 ML VIAL SC PRN (20:37)
[2024-11-05 06:36] VITALS: TEMP 98
[2024-11-05 09:25] VITALS: BP 142/70
== END 2024-11-05 12:05 | disposition home health service (06) | DRG 948 ==
LOC: MADMS 18:22
PROVIDERS: ADMIT Family Medicine; ATTEND Family Medicine
DX: R53.81 Other malaise (principal); R78.81 Bacteremia; N39.0 Urinary tract infection, site not specified; I50.32 Chronic diastolic (congestive) heart failure; I13.0 Hypertensive heart and chronic kidney disease with heart failure and stage 1 through stage 4 chronic kidney disease, or unspecified chronic kidney disease; N18.4 Chronic kidney disease, stage 4 (severe); E87.20 Acidosis, unspecified; Z66 Do not resuscitate; R56.9 Unspecified convulsions; Z86.73 Personal history of transient ischemic attack (TIA), and cerebral infarction without residual deficits; G30.9 Alzheimer's disease, unspecified; F01.50 Vascular dementia, unspecified severity, without behavioral disturbance, psychotic disturbance, mood disturbance, and anxiety; E11.22 Type 2 diabetes mellitus with diabetic chronic kidney disease; I71.21 Aneurysm of the ascending aorta, without rupture; Z88.8 Allergy status to other drugs, medicaments and biological substances; Z79.899 Other long term (current) drug therapy; Z79.82 Long term (current) use of aspirin; E78.5 Hyperlipidemia, unspecified; D63.1 Anemia in chronic kidney disease; F32.A Depression, unspecified
CPT/HCPCS: 36415; 36416; 80048; 80053; 85025; 85027; J0696; J1644; J1815; J7030; Q5105